=== PATIENT | male | born 1965 | race American Indian/Alaskan Native ===

== ENCOUNTER 2016-04-27 12:33 | Inpatient (IN) | payer OTHER ==
[2016-04-27 13:15] VITALS: BMI 26.6
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
[2016-04-27] MEDS ORDERED: METHADONE HCL 10 MG TABLET (FOR DETOX USE ONLY) PO ONE ×2 (16:07→23:00)
[2016-04-27] MEDS ORDERED: hydrOXYzine PAMOATE 25 MG CAPSULE (FP) PO PRN (16:07)
[2016-04-27] MEDS ORDERED: MENTHOL/PHENOL 1 EACH UD MM PRN (16:07)
[2016-04-27] MEDS ORDERED: guaiFENesin/D-METHORPHAN HB 10 ML UNIT-DOSE CUPS PO PRN (16:07)
[2016-04-27] MEDS ORDERED: MAGNESIUM CITRATE 300 ML BOTTLE PO PRN (16:07)
[2016-04-27] MEDS ORDERED: LOPERAMIDE HCL 2 MG CAPSULE PO PRN (16:07)
[2016-04-27] MEDS ORDERED: MAG HYDROX/AL HYDROX/SIMETH 30 ML UNIT-DOSE CUP PO PRN (16:07)
[2016-04-27] MEDS ORDERED: chlordiazePOXIDE HCL 25 MG CAPSULE PO ONE (16:07)
[2016-04-27] MEDS ORDERED: IBUPROFEN 400 MG TABLET (FP) PO PRN (16:07)
[2016-04-27] MEDS ORDERED: chlordiazePOXIDE HCL 25 MG CAPSULE PO PRN (16:07)
[2016-04-27] MEDS ORDERED: MAGNESIUM HYDROX 2400MG/30ML ORAL SUSPENSION 30 ML CUP PO PRN (16:07)
[2016-04-27] MEDS ORDERED: ACETAMINOPHEN 325 MG TABLET (FP) PO PRN (16:07)
[2016-04-27] MEDS ORDERED: diphenhydrAMINE HCL 50 MG CAPSULE PO PRN (16:07)
[2016-04-27] MEDS ORDERED: P-EPHED 60MG/TRIPROLIDI 2.5MG TABLET PO PRN (16:07)
[2016-04-27] MEDS: chlordiazePOXIDE HCL 25 MG CAPSULE PO SCH ×2 (16:59→22:22)
[2016-04-27] MEDS: RALTEGRAVIR POTASSIUM 400 MG TAB PO SCH (22:22)
[2016-04-27] MEDS: THIAMINE HCL 100 MG TABLET (FP) PO SCH (22:22)
[2016-04-28] MEDS: chlordiazePOXIDE HCL 25 MG CAPSULE PO SCH ×4 (05:36→22:27)
[2016-04-28] MEDS ORDERED: METHADONE HCL 10 MG TABLET (FOR DETOX USE ONLY) PO SCH (10:00)
[2016-04-28 10:08] LABS: MCH 27.9 pg (25.7-33.7); MCHC 32.1 g/dl (32.0-35.9); MEAN CELL VOLUME 86.7 fl (80-96); MEAN PLT VOLUME 7.1 fl (7.5-11.1); PLATELET COUNT 187 K/MM3 (134-434); RDW 13.9 % (11.9-15.9); WHITE BLOOD COUNT 7.9 K/mm3 (4.0-10.0)
[2016-04-28 10:12] LABS: ALBUMIN 3.4 g/dl (3.4-5.0); ANION GAP 7 (8-16); CALCIUM 9.1 mg/dL (8.5-10.1); CO2 28 mmol/L (21-32); GLUCOSE,RANDOM 97 mg/dL (74-106)
[2016-04-28 10:17] LABS: ALK PHOS 83 U/L (45-117); BILIRUBIN,TOTAL 0.5 mg/dL (0.2-1.0); CREATININE 1.1 mg/dL (0.7-1.3); SGOT/AST 46 U/L (15-37); SGPT/ALT 54 U/L (12-78); TOT PROT 6.8 g/dl (6.4-8.2)
[2016-04-28] MEDS: PRENATAL VITAMINS W/ FOLIC ACID TABLET (FP) PO SCH (10:21)
[2016-04-28] MEDS: RALTEGRAVIR POTASSIUM 400 MG TAB PO SCH ×2 (10:21→22:27)
[2016-04-28] MEDS: EMTRICITABINE 200MG/TENOFOVIR 300MG PO SCH (10:23)
--- NOTE | 2016-04-28 11:13 | CONSULT ---
[facility] Psychiatric Consult - Data Date of interview: 04/28/16 Admission source: [facility] Identifying data: Readmission to [facility] for this 50 y/o Aa male seeking detox treatment on for alcohol and cocaine (crack) dependence.Patient is ,a father of five,homeless,disabled and supported on [employer] funds. Substance Abuse History: - Smoking Cessation. Smoking history: Current every day smoker. Have you smoked in the past 12 months: Yes. Aproximately how many cigarettes per day: 10. Hx Chewing Tobacco Use: No. Initiated information on smoking cessation: Yes. 'Breaking Loose' booklet given: 10/08/15. - Substance & Tx. History. Hx Alcohol Use: No. Hx Substance Use: Yes. Substance Use Type : Cocaine, Heroin, Opiates. Hx Substance Use Treatment: Yes. - Substances Abused. Heroin. Route: Injection. Frequency: Daily. Amount used: 6 bags. Age of first use: 12. Date of Last Use: 10/07/15. Confirmed by patient. Medical History: Hepatitis C,HIV infection since 1996,heart murmur,right hip replacement and orthosurgery for fracture of right femur. Psychiatric History: Diagnosed with PTSD (1990).Patient admits to a history of one psychiatric hospitalization at [facility].Precipitant : of from AIDS (1994).Additional diagnosis : Bipolar Disorder.Patient is followed by Dr Scruggs at [facility].Medications : seroquel 200 mg/HS + zoloft 100 mg/day.No reported history of suicide attempts. Physical/Sexual Abuse/Trauma History: No history of sexual abuse. Mental Status Exam - Mental Status Exam Alert and Oriented to: Time, Place, Person Cognitive Function: Good Patient Appearance: Well Groomed Mood: Sad, Nervous, Anxious Affect: Mood Congruent Patient Behavior: Fatigued, Appropriate, Cooperative Speech Pattern: Clear, Appropriate Voice Loudness: Normal Thought Process: Goal Oriented Thought Disorder: Not Present Hallucinations: Denies Suicidal Ideation: Denies Homicidal Ideation: Denies Insight/Judgement: Fair Sleep: Poorly, Difficulty falling asleep Appetite: Fair Gait/Station: Other (walks with a cane) Psychiatric Findings - Problem List ([place] 1, 2,3) (1) Alcohol dependence with uncomplicated withdrawal Status: Acute (2) Nicotine dependence Status: Acute Qualifiers: Nicotine product type: cigarettes Substance use status: uncomplicated Qualified Code(s): F17.210 - Nicotine dependence, cigarettes, uncomplicated Comment: 10 cigarettes daily (3) Cocaine dependence Status: Acute (4) PTSD (post-traumatic stress disorder) Status: Chronic (5) Right femoral fracture Status: Chronic (6) Use of cane as ambulatory aid Status: Chronic (7) Acquired immune deficiency syndrome (AIDS) Status: Chronic Comment: 1990 (8) Hepatitis C Status: Chronic Qualifiers: Viral hepatitis chronicity: chronic Hepatic coma status: without hepatic coma Qualified Code(s): B18.2 - Chronic viral hepatitis C Comment: plan to be treated - Initial Treatment Plan Initial Treatment Plan: Psychoeducation.Detoxification.medications :seroquel 100 mg po hs + zoloft 100 mg po daily.Side effects/benefits discussed with the patient.He agrees with this plan.
[2016-04-28] MEDS: SERTRALINE HCL 50 MG TABLET (FP) PO SCH (13:05)
--- NOTE | 2016-04-28 13:43 | PN ---
S CIWA - CIWA Score Nausea/Vomitin Muscle Tremors: 3 Anxiety: 3 Agitation: 2 Paroxysmal Sweats: 3 Orientation: 0-Oriented Tacttile Disturbances: 1-Very Mild Itch/Numbness Auditory Disturbances: 2-Mild Harshness/Frighten Visual Disturbances: 0-None Headache: 0-None Present CIWA-Ar Total Score: 16 BHS COWS - Scale Resting Pulse: 1= [place] 81-100 Sweatin= Chills/Flushing Restless Observation: 1= Difficult to Sit Still Pupil Size: 0= Normal to Room Light Bone or Joint Aches: 2= Severe Diffuse Aches Runny Nose/ Eye Tearin= None GI Upset > 30mins: 2= Nausea/Diarrhea Tremor Observation of Outstretched Hands: 2= Slight Tremor Visible Yawning Observation: 0= None Anxiety or Irritability: 2=Irritable/Anxious Goose Flesh Skin: 3=Piloerection COWS Score: 14 BHS Progress Note (SOAP) Subjective: Sweating, Tremors, Diarrhea, Back Ache. Objective: PT. A & O X 3, OBSERVED AMBULATING ON UNIT. 04/28/16 13:42 Vital Signs Temperature 96.0 F L 04/28/16 13:21 Pulse Rate 83 04/28/16 13:21 Respiratory Rate 18 04/28/16 13:21 Blood Pressure 124/79 04/28/16 13:21 O2 Sat by Pulse Oximetry (%) Laboratory Last Values WBC 7.9 K/mm3 (4.0-10.0) D 04/28/16 07:00 RBC 4.99 M/mm3 (4.00-5.60) 04/28/16 07:00 Hgb 13.9 GM/dL (11.7-16.9) D 04/28/16 07:00 Hct 43.2 % (35.4-49) D 04/28/16 07:00 MCV 86.7 fl (80-96) 04/28/16 07:00 MCHC 32.1 g/dl (32.0-35.9) 04/28/16 07:00 RDW 13.9 % (11.9-15.9) 04/28/16 07:00 Plt Count 187 K/MM3 (134-434) D 04/28/16 07:00 MPV 7.1 fl (7.5-11.1) L 04/28/16 07:00 Sodium 140 mmol/L (136-145) 04/28/16 07:00 Potassium 4.1 mmol/L (3.5-5.1) 04/28/16 07:00 Chloride 105 mmol/L (98-107) 04/28/16 07:00 Carbon Dioxide 28 mmol/L (21-32) 04/28/16 07:00 Anion Gap 7 (8-16) L 04/28/16 07:00 BUN 15 mg/dL (7-18) 04/28/16 07:00 Creatinine 1.1 mg/dL (0.7-1.3) 04/28/16 07:00 Creat Clearance w eGFR > 60 (>60) 04/28/16 07:00 Random Glucose 97 mg/dL (74-106) 04/28/16 07:00 Calcium 9.1 mg/dL (8.5-10.1) 04/28/16 07:00 Total Bilirubin 0.5 mg/dL (0.2-1.0) 04/28/16 07:00 AST 46 U/L (15-37) H D 04/28/16 07:00 ALT 54 U/L (12-78) D 04/28/16 07:00 Alkaline Phosphatase 83 U/L (45-117) 04/28/16 07:00 Total Protein 6.8 g/dl (6.4-8.2) 04/28/16 07:00 Albumin 3.4 g/dl (3.4-5.0) 04/28/16 07:00 RPR Titer Nonreactive (NONREACTIVE) 04/28/16 07:00 LABS NOTED. Assessment: 04/28/16 13:43 WITHDRAWAL SYMPTOMS. Plan: CONTINUE DETOX.
--- NOTE | 2016-04-28 13:58 | EKG ---
Test Reason : Blood Pressure : / mmHG Vent. Rate : 083 BPM Atrial Rate : 083 BPM P-R Int : 170 ms QRS Dur : 082 ms QT Int : 382 ms P-R-T Axes : 067 046 043 degrees QTc Int : 448 ms NORMAL SINUS RHYTHM NORMAL ECG NO PREVIOUS ECGS AVAILABLE Confirmed by ELADIA UGALDE MD ([id number]) on 04/28/2016 1:58:27 PM Referred By: Confirmed By:ELADIA UGALDE MD
[2016-04-28 17:15] LABS: URINE APPEARANCE CLEAR; URINE BILIRUBIN NEGATIVE (NEGATIVE); URINE COLOR LTYELLOW; URINE GLUCOSE (UA) NEGATIVE (NEGATIVE); URINE KETONE NEGATIVE (NEGATIVE); URINE LEUK ESTERASE NEGATIVE (NEGATIVE); URINE NITRITE NEGATIVE (NEGATIVE); URINE PROTEIN NEGATIVE (NEGATIVE); URINE UROBILINOGEN NEGATIVE E.U./dl (0.2-1.0)
[2016-04-28 17:21] LABS: URINE BLOOD 1+ (NEGATIVE)
[2016-04-28 17:57] LABS: URINE MUCUS RARE; URINE RBC <1 /hpf (0-3); URINE WBC <1 /hpf (3-5)
[2016-04-28] MEDS: QUEtiapine FUMARATE 100 MG TABLET (FP) PO SCH (22:27)
[2016-04-28] MEDS: THIAMINE HCL 100 MG TABLET (FP) PO SCH (22:27)
[2016-04-29] MEDS: chlordiazePOXIDE HCL 25 MG CAPSULE PO SCH ×2 (06:08→10:21)
[2016-04-29] MEDS: RALTEGRAVIR POTASSIUM 400 MG TAB PO SCH ×2 (10:21→22:22)
[2016-04-29] MEDS: PRENATAL VITAMINS W/ FOLIC ACID TABLET (FP) PO SCH (10:21)
[2016-04-29] MEDS: EMTRICITABINE 200MG/TENOFOVIR 300MG PO SCH (10:21)
[2016-04-29] MEDS: SERTRALINE HCL 50 MG TABLET (FP) PO SCH (10:21)
[2016-04-29] MEDS: METHADONE HCL 5 MG TABLET (FOR DETOX USE ONLY) PO SCH (10:22)
--- NOTE | 2016-04-29 11:27 | PN ---
[facility] CIWA - CIWA Score Nausea/Vomitin-No Nausea/No Vomiting Muscle Tremors: 3 Anxiety: 4-Mod. Anxious/Guarded Agitation: 3 Paroxysmal Sweats: 3 Orientation: 0-Oriented Tacttile Disturbances: 0-None Auditory Disturbances: 0-None Visual Disturbances: 0-None Headache: 0-None Present CIWA-Ar Total Score: 13 BHS COWS - Scale Resting Pulse: 1= [place] 81-100 Sweatin=Flushed/Facial Moisture Restless Observation: 1= Difficult to Sit Still Pupil Size: 0= Normal to Room Light Bone or Joint Aches: 2= Severe Diffuse Aches Runny Nose/ Eye Tearin= Runny Nose/Eyes GI Upset > 30mins: 2= Nausea/Diarrhea Tremor Observation of Outstretched Hands: 2= Slight Tremor Visible Yawning Observation: 1= 1-2x During Session Anxiety or Irritability: 2=Irritable/Anxious Goose Flesh Skin: 0=Smooth Skin COWS Score: 15 BHS Progress Note (SOAP) Subjective: ANXIETY,TREMORS,SWEATING,INTERRUPTED SLEEP,RESTLESS,MUSCLE ACHES/SPASM Objective: 04/29/16 11:26 Last Vital Signs Temp Pulse Resp BP Pulse Ox 96.3 F L 86 18 109/78 04/29/16 06:37 04/29/16 09:51 04/29/16 09:51 04/29/16 09:51 Assessment: 04/29/16 11:26 WITHDRAWAL SX. Plan: CONTINUE DETOX
[2016-04-29] MEDS: chlordiazePOXIDE 5 MG CAPSULE PO SCH ×2 (17:12→22:22)
[2016-04-29] MEDS: THIAMINE HCL 100 MG TABLET (FP) PO SCH (22:22)
[2016-04-29] MEDS: QUEtiapine FUMARATE 100 MG TABLET (FP) PO SCH (22:22)
[2016-04-30] MEDS: chlordiazePOXIDE 5 MG CAPSULE PO SCH ×2 (05:58→10:25)
[2016-04-30] MEDS: PRENATAL VITAMINS W/ FOLIC ACID TABLET (FP) PO SCH (10:24)
[2016-04-30] MEDS: RALTEGRAVIR POTASSIUM 400 MG TAB PO SCH ×2 (10:24→22:18)
[2016-04-30] MEDS: METHADONE HCL 5 MG TABLET (FOR DETOX USE ONLY) PO SCH (10:25)
[2016-04-30] MEDS: EMTRICITABINE 200MG/TENOFOVIR 300MG PO SCH (10:25)
[2016-04-30] MEDS: SERTRALINE HCL 50 MG TABLET (FP) PO SCH (10:26)
[2016-04-30] MEDS: chlordiazePOXIDE HCL 10 MG CAPSULE PO SCH ×2 (17:45→22:18)
--- NOTE | 2016-04-30 17:51 | PN ---
BHS Progress Note (SOAP) Subjective: SWEATING,INTERRUPTED SLEEP,RESTLESS. Objective: 04/30/16 17:50 Vital Signs - 8 hr 04/30/16 04/30/16 13:20 17:30 Temperature 95.6 F L 97.1 F L Pulse Rate 79 70 Respiratory 18 19 Rate Blood Pressure 115/76 109/62 Laboratory Last Values WBC 7.9 K/mm3 (4.0-10.0) D 04/28/16 07:00 RBC 4.99 M/mm3 (4.00-5.60) 04/28/16 07:00 Hgb 13.9 GM/dL (11.7-16.9) D 04/28/16 07:00 Hct 43.2 % (35.4-49) D 04/28/16 07:00 MCV 86.7 fl (80-96) 04/28/16 07:00 MCHC 32.1 g/dl (32.0-35.9) 04/28/16 07:00 RDW 13.9 % (11.9-15.9) 04/28/16 07:00 Plt Count 187 K/MM3 (134-434) D 04/28/16 07:00 MPV 7.1 fl (7.5-11.1) L 04/28/16 07:00 Sodium 140 mmol/L (136-145) 04/28/16 07:00 Potassium 4.1 mmol/L (3.5-5.1) 04/28/16 07:00 Chloride 105 mmol/L (98-107) 04/28/16 07:00 Carbon Dioxide 28 mmol/L (21-32) 04/28/16 07:00 Anion Gap 7 (8-16) L 04/28/16 07:00 BUN 15 mg/dL (7-18) 04/28/16 07:00 Creatinine 1.1 mg/dL (0.7-1.3) 04/28/16 07:00 Creat Clearance w eGFR > 60 (>60) 04/28/16 07:00 Random Glucose 97 mg/dL (74-106) 04/28/16 07:00 Calcium 9.1 mg/dL (8.5-10.1) 04/28/16 07:00 Total Bilirubin 0.5 mg/dL (0.2-1.0) 04/28/16 07:00 AST 46 U/L (15-37) H D 04/28/16 07:00 ALT 54 U/L (12-78) D 04/28/16 07:00 Alkaline Phosphatase 83 U/L (45-117) 04/28/16 07:00 Total Protein 6.8 g/dl (6.4-8.2) 04/28/16 07:00 Albumin 3.4 g/dl (3.4-5.0) 04/28/16 07:00 Urine Color Ltyellow 04/28/16 13:30 Urine Appearance Clear 04/28/16 13:30 Urine pH 7.0 (5.0-8.0) D 04/28/16 13:30 Ur Specific [place] 1.013 (1.001-1.035) 04/28/16 13:30 Urine Protein Negative (NEGATIVE) 04/28/16 13:30 Urine Glucose (UA) Negative (NEGATIVE) 04/28/16 13:30 Urine Ketones Negative (NEGATIVE) 04/28/16 13:30 Urine Blood 1+ (NEGATIVE) H 04/28/16 13:30 Urine Nitrite Negative (NEGATIVE) 04/28/16 13:30 Urine Bilirubin Negative (NEGATIVE) 04/28/16 13:30 Urine Urobilinogen Negative E.U./dl (0.2-1.0) 04/28/16 13:30 Ur Leukocyte Esterase Negative (NEGATIVE) 04/28/16 13:30 Urine RBC <1 /hpf (0-3) 04/28/16 13:30 Urine WBC <1 /hpf (3-5) 04/28/16 13:30 Urine Mucus Rare 04/28/16 13:30 RPR Titer Nonreactive (NONREACTIVE) 04/28/16 07:00 LABS NOTED Assessment: 04/30/16 17:50 WITHDRAWAL SX. Plan: CONTINUE DETOX
[2016-04-30] MEDS: QUEtiapine FUMARATE 100 MG TABLET (FP) PO SCH (22:18)
[2016-04-30] MEDS: THIAMINE HCL 100 MG TABLET (FP) PO SCH (22:18)
[2016-05-01] MEDS: chlordiazePOXIDE HCL 10 MG CAPSULE PO SCH ×2 (05:39→10:23)
[2016-05-01] MEDS ORDERED: METHADONE HCL 10 MG TABLET (FOR DETOX USE ONLY) PO SCH (10:00)
[2016-05-01] MEDS: SERTRALINE HCL 50 MG TABLET (FP) PO SCH (10:23)
[2016-05-01] MEDS: RALTEGRAVIR POTASSIUM 400 MG TAB PO SCH ×2 (10:23→22:15)
[2016-05-01] MEDS: PRENATAL VITAMINS W/ FOLIC ACID TABLET (FP) PO SCH (10:23)
[2016-05-01] MEDS: EMTRICITABINE 200MG/TENOFOVIR 300MG PO SCH (10:24)
--- NOTE | 2016-05-01 11:19 | PN ---
BHS Progress Note (SOAP) Subjective: SWEATING,INTERRUPTED SLEEP,SWEATING Objective: 05/01/16 11:18 Vital Signs - 8 hr 05/01/16 05/01/16 05/01/16 03:30 07:00 10:09 Temperature 95.9 F L 96.8 F L Pulse Rate 96 H 97 H Respiratory 18 16 16 Rate Blood Pressure 97/62 107/71 Laboratory Last Values WBC 7.9 K/mm3 (4.0-10.0) D 04/28/16 07:00 RBC 4.99 M/mm3 (4.00-5.60) 04/28/16 07:00 Hgb 13.9 GM/dL (11.7-16.9) D 04/28/16 07:00 Hct 43.2 % (35.4-49) D 04/28/16 07:00 MCV 86.7 fl (80-96) 04/28/16 07:00 MCHC 32.1 g/dl (32.0-35.9) 04/28/16 07:00 RDW 13.9 % (11.9-15.9) 04/28/16 07:00 Plt Count 187 K/MM3 (134-434) D 04/28/16 07:00 MPV 7.1 fl (7.5-11.1) L 04/28/16 07:00 Sodium 140 mmol/L (136-145) 04/28/16 07:00 Potassium 4.1 mmol/L (3.5-5.1) 04/28/16 07:00 Chloride 105 mmol/L (98-107) 04/28/16 07:00 Carbon Dioxide 28 mmol/L (21-32) 04/28/16 07:00 Anion Gap 7 (8-16) L 04/28/16 07:00 BUN 15 mg/dL (7-18) 04/28/16 07:00 Creatinine 1.1 mg/dL (0.7-1.3) 04/28/16 07:00 Creat Clearance w eGFR > 60 (>60) 04/28/16 07:00 Random Glucose 97 mg/dL (74-106) 04/28/16 07:00 Calcium 9.1 mg/dL (8.5-10.1) 04/28/16 07:00 Total Bilirubin 0.5 mg/dL (0.2-1.0) 04/28/16 07:00 AST 46 U/L (15-37) H D 04/28/16 07:00 ALT 54 U/L (12-78) D 04/28/16 07:00 Alkaline Phosphatase 83 U/L (45-117) 04/28/16 07:00 Total Protein 6.8 g/dl (6.4-8.2) 04/28/16 07:00 Albumin 3.4 g/dl (3.4-5.0) 04/28/16 07:00 Urine Color Ltyellow 04/28/16 13:30 Urine Appearance Clear 04/28/16 13:30 Urine pH 7.0 (5.0-8.0) D 04/28/16 13:30 Ur Specific [place] 1.013 (1.001-1.035) 04/28/16 13:30 Urine Protein Negative (NEGATIVE) 04/28/16 13:30 Urine Glucose (UA) Negative (NEGATIVE) 04/28/16 13:30 Urine Ketones Negative (NEGATIVE) 04/28/16 13:30 Urine Blood 1+ (NEGATIVE) H 04/28/16 13:30 Urine Nitrite Negative (NEGATIVE) 04/28/16 13:30 Urine Bilirubin Negative (NEGATIVE) 04/28/16 13:30 Urine Urobilinogen Negative E.U./dl (0.2-1.0) 04/28/16 13:30 Ur Leukocyte Esterase Negative (NEGATIVE) 04/28/16 13:30 Urine RBC <1 /hpf (0-3) 04/28/16 13:30 Urine WBC <1 /hpf (3-5) 04/28/16 13:30 Urine Mucus Rare 04/28/16 13:30 RPR Titer Nonreactive (NONREACTIVE) 04/28/16 07:00 LABS NOTED Assessment: 05/01/16 11:18 WITHDRAWAL SX. Plan: CONTINUE DETOX
[2016-05-01] MEDS: THIAMINE HCL 100 MG TABLET (FP) PO SCH (22:15)
[2016-05-01] MEDS: QUEtiapine FUMARATE 100 MG TABLET (FP) PO SCH (22:15)
[2016-05-02] MEDS ORDERED: METHADONE HCL 5 MG TABLET (FOR DETOX USE ONLY) PO SCH (06:00)
[2016-05-02 06:24] VITALS: BP 105/72; PULSE 80; TEMP 96.5
--- NOTE | 2016-05-02 11:35 | DS ---
[facility] Detox Discharge Summary Admission Date: 04/27/16 Discharge Date: 05/02/16 - History Present History: Alcohol Dependence, Cocaine Dependence, Opioid Dependence Pertinent Past History: AIDS PTSD HEP C - Physical Exam Results Vital Signs: Vital Signs Temperature 96.5 F L 05/02/16 06:24 Pulse Rate 80 05/02/16 06:24 Respiratory Rate 16 05/02/16 06:24 Blood Pressure 105/72 05/02/16 06:24 O2 Sat by Pulse Oximetry (%) Pertinent Admission Physical Exam Findings: Withdrawal sx. Laboratory Tests 04/28/16 04/28/16 04/28/16 07:00 07:00 07:00 WBC 7.9 D RBC 4.99 Hgb 13.9 D Hct 43.2 D MCV 86.7 MCHC 32.1 RDW 13.9 Plt Count 187 D MPV 7.1 L Sodium 140 Potassium 4.1 Chloride 105 Carbon Dioxide 28 Anion Gap 7 L BUN 15 Creatinine 1.1 Creat Clearance w eGFR > 60 Random Glucose 97 Calcium 9.1 Total Bilirubin 0.5 AST 46 H D ALT 54 D Alkaline Phosphatase 83 Total Protein 6.8 Albumin 3.4 Urine Color Urine Appearance Urine pH Ur Specific [place] Urine Protein Urine Glucose (UA) Urine Ketones Urine Blood Urine Nitrite Urine Bilirubin Urine Urobilinogen Ur Leukocyte Esterase Urine RBC Urine WBC Urine Mucus RPR Titer Nonreactive 04/28/16 13:30 WBC RBC Hgb Hct MCV MCHC RDW Plt Count MPV Sodium Potassium Chloride Carbon Dioxide Anion Gap BUN Creatinine Creat Clearance w eGFR Random Glucose Calcium Total Bilirubin AST ALT Alkaline Phosphatase Total Protein Albumin Urine Color Ltyellow Urine Appearance Clear Urine pH 7.0 D Ur Specific [place] 1.013 Urine Protein Negative Urine Glucose (UA) Negative Urine Ketones Negative Urine Blood 1+ H Urine Nitrite Negative Urine Bilirubin Negative Urine Urobilinogen Negative Ur Leukocyte Esterase Negative Urine RBC <1 Urine WBC <1 Urine Mucus Rare RPR Titer labs noted - Treatment Hospital Course: Detox Protocol Followed, Detoxed Safely, Responded well, Discharged Condition Good, Rehab Referral Accepted - Medication Discharge Medications: Ambulatory Orders Quetiapine Fumarate [Seroquel -] 200 mg PO HS 04/05/13 Emtricitabine/Tenofovir [Truvada -] 1 tab PO DAILY #0 tablet 06/08/13 Raltegravir [Isentress -] 400 mg PO BID 04/27/16 Sertraline HCl [Zoloft] 100 mg PO DAILY 04/27/16 Quetiapine Fumarate [Seroquel] 100 mg PO HS #30 tablet 04/28/16 Sertraline HCl [Zoloft -] 100 mg PO DAILY #30 tablet 04/28/16 - Diagnosis (1) Alcohol dependence with uncomplicated withdrawal Status: Acute (2) Cocaine dependence Status: Acute Qualifiers: Substance use status: uncomplicated Qualified Code(s): F14.20 - Cocaine dependence, uncomplicated (3) Nicotine dependence Status: Acute Qualifiers: Nicotine product type: cigarettes Substance use status: uncomplicated Qualified Code(s): F17.210 - Nicotine dependence, cigarettes, uncomplicated (4) Opioid dependence with withdrawal Status: Acute (5) Acquired immune deficiency syndrome (AIDS) Status: Chronic (6) Hepatitis C Status: Chronic Qualifiers: Viral hepatitis chronicity: chronic Hepatic coma status: without hepatic coma Qualified Code(s): B18.2 - Chronic viral hepatitis C (7) PTSD (post-traumatic stress disorder) Status: Chronic - AMA Did Patient Leave Against Medical Advice: No
== END 2016-05-02 09:13 | disposition home or self-care (01) | DRG 774 ==
LOC: YASAS 12:33 → Y3N 15:20
PROVIDERS: ADMIT Internal Medicine; ATTEND Internal Medicine
PROC: HZ2ZZZZ Detoxification Services for Substance Abuse Treatment (ICD-10-PCS; principal; 2016-05-02)
DX: F10.230 Alcohol dependence with withdrawal, uncomplicated (principal); F14.20 Cocaine dependence, uncomplicated; F17.210 Nicotine dependence, cigarettes, uncomplicated; F31.81 Bipolar II disorder; F43.10 Post-traumatic stress disorder, unspecified; Z21 Asymptomatic human immunodeficiency virus [HIV] infection status; R63.4 Abnormal weight loss; Z68.26 Body mass index [BMI] 26.0-26.9, adult; Z87.81 Personal history of (healed) traumatic fracture
CPT/HCPCS: 36415; 80053; 81003; 81015; 85027; 86593; 93005; 93010

== ENCOUNTER 2016-07-07 10:29 | Inpatient (IN) | payer OTHER ==
[2016-07-07 14:08] VITALS: BMI 25.9
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
[2016-07-07] MEDS ORDERED: diphenhydrAMINE HCL 50 MG CAPSULE PO PRN (15:43)
[2016-07-07] MEDS ORDERED: MENTHOL/PHENOL 1 EACH UD MM PRN (15:43)
[2016-07-07] MEDS ORDERED: chlordiazePOXIDE HCL 25 MG CAPSULE PO PRN (15:43)
[2016-07-07] MEDS ORDERED: LOPERAMIDE HCL 2 MG CAPSULE PO PRN (15:43)
[2016-07-07] MEDS ORDERED: NICOTINE POLACRILEX 2 MG GUM BC PRN (15:43)
[2016-07-07] MEDS ORDERED: MAG HYDROX/AL HYDROX/SIMETH 30 ML UNIT-DOSE CUP PO PRN (15:43)
[2016-07-07] MEDS ORDERED: IBUPROFEN 400 MG TABLET (FP) PO PRN (15:43)
[2016-07-07] MEDS ORDERED: hydrOXYzine PAMOATE 25 MG CAPSULE (FP) PO PRN (15:43)
[2016-07-07] MEDS ORDERED: MAGNESIUM HYDROX 2400MG/30ML ORAL SUSPENSION 30 ML CUP PO PRN (15:43)
[2016-07-07] MEDS ORDERED: guaiFENesin/D-METHORPHAN HB 10 ML UNIT-DOSE CUPS PO PRN (15:43)
[2016-07-07] MEDS ORDERED: ACETAMINOPHEN 325 MG TABLET (FP) PO PRN (15:43)
[2016-07-07] MEDS ORDERED: P-EPHED 60MG/TRIPROLIDI 2.5MG TABLET PO PRN (15:43)
[2016-07-07] MEDS ORDERED: MAGNESIUM CITRATE 300 ML BOTTLE PO PRN (15:43)
[2016-07-07] MEDS ORDERED: chlordiazePOXIDE HCL 25 MG CAPSULE PO ONE (16:45)
[2016-07-07] MEDS ORDERED: METHADONE HCL 10 MG TABLET (FOR DETOX USE ONLY) PO ONE ×2 (16:45→23:00)
[2016-07-07 18:15] VITALS: BP 115/72; PULSE 88; TEMP 97.9
--- NOTE | 2016-07-07 20:15 | PN ---
[facility] Progress Note Note: patient did not want to complete treatment,reason personal emergency,signed release ama,did not want to wait
--- NOTE | 2016-07-07 20:16 | DS ---
[facility] Detox Discharge Summary Admission Date: 07/07/16 Discharge Date: 07/08/16 - History Present History: Alcohol Dependence, Opioid Dependence Additional Comments: patient did not want to complete treatment,reason family emergency,did not want to wait,signed release ama,did not wnat to wait Pertinent Past History: aids hepatitis c neuropathy ptsd bipolar disorder - Physical Exam Results Vital Signs: Vital Signs Temperature 97.9 F 07/07/16 18:14 Pulse Rate 88 07/07/16 18:14 Respiratory Rate 20 07/07/16 18:14 Blood Pressure 115/72 07/07/16 18:14 O2 Sat by Pulse Oximetry (%) Pertinent Admission Physical Exam Findings: withdrawal symptom - Medication Discharge Medications: Ambulatory Orders Emtricitabine/Tenofovir [Truvada -] 1 tab PO DAILY #0 tablet 06/08/13 Raltegravir [Isentress -] 400 mg PO BID 04/27/16 Quetiapine Fumarate [Seroquel] 100 mg PO HS #30 tablet 04/28/16 Sertraline HCl [Zoloft -] 100 mg PO DAILY #30 tablet 04/28/16 - Diagnosis (1) Opioid dependence with withdrawal Current Visit: No Status: Acute (2) Weight loss Current Visit: No Status: Acute (3) Acquired immune deficiency syndrome (AIDS) Current Visit: No Status: Chronic (4) Bipolar I disorder Current Visit: No Status: Chronic (5) Hepatitis C Current Visit: No Status: Chronic Qualifiers: Viral hepatitis chronicity: chronic Hepatic coma status: without hepatic coma Qualified Code(s): B18.2 - Chronic viral hepatitis C (6) PTSD (post-traumatic stress disorder) Current Visit: No Status: Chronic (7) Right femoral fracture Current Visit: No Status: Chronic (8) Neuropathy Current Visit: Yes Status: Acute (9) Nicotine dependence Current Visit: No Status: Acute Qualifiers: Nicotine product type: cigarettes Substance use status: uncomplicated Qualified Code(s): F17.210 - Nicotine dependence, cigarettes, uncomplicated - AMA Did Patient Leave Against Medical Advice: Yes
[2016-07-07] MEDS ORDERED: RALTEGRAVIR POTASSIUM 400 MG TAB PO SCH (22:00)
[2016-07-07] MEDS ORDERED: THIAMINE HCL 100 MG TABLET (FP) PO SCH (22:00)
[2016-07-07] MEDS ORDERED: chlordiazePOXIDE HCL 25 MG CAPSULE PO SCH (23:00)
[2016-07-08] MEDS ORDERED: METHADONE HCL 10 MG TABLET (FOR DETOX USE ONLY) PO SCH (10:00)
[2016-07-08] MEDS ORDERED: PRENATAL VITAMINS W/ FOLIC ACID TABLET (FP) PO SCH (10:00)
[2016-07-08] MEDS ORDERED: EMTRICITABINE 200MG/TENOFOVIR 300MG PO SCH (10:00)
--- NOTE | 2016-07-08 13:14 | EKG ---
Test Reason : Blood Pressure : / mmHG Vent. Rate : 075 BPM Atrial Rate : 075 BPM P-R Int : 176 ms QRS Dur : 096 ms QT Int : 388 ms P-R-T Axes : 072 048 049 degrees QTc Int : 433 ms NORMAL SINUS RHYTHM POOR R WAVE PROGRESSION ABNORMAL ECG WHEN COMPARED WITH ECG OF 27-APR-2016 17:05, NO SIGNIFICANT CHANGE WAS FOUND Confirmed by TAMARA JORDAN MD ([id number]) on 07/08/2016 1:14:12 PM Referred By: Confirmed By:TAMARA JORDAN MD
[2016-07-08] MEDS ORDERED: chlordiazePOXIDE HCL 25 MG CAPSULE PO SCH (23:00)
[2016-07-09] MEDS ORDERED: METHADONE HCL 5 MG TABLET (FOR DETOX USE ONLY) PO SCH (10:00)
[2016-07-09] MEDS ORDERED: chlordiazePOXIDE 5 MG CAPSULE PO SCH (23:00)
[2016-07-10] MEDS ORDERED: chlordiazePOXIDE HCL 10 MG CAPSULE PO SCH (23:00)
[2016-07-11] MEDS ORDERED: METHADONE HCL 10 MG TABLET (FOR DETOX USE ONLY) PO SCH (10:00)
[2016-07-12] MEDS ORDERED: METHADONE HCL 5 MG TABLET (FOR DETOX USE ONLY) PO SCH (06:00)
== END 2016-07-07 20:45 | disposition left against medical advice (07) | DRG 770 ==
LOC: YASAS 10:29 → Y6N 16:11
PROVIDERS: ADMIT Internal Medicine Addiction Medicine; ATTEND Internal Medicine Addiction Medicine
PROC: HZ2ZZZZ Detoxification Services for Substance Abuse Treatment (ICD-10-PCS; principal; 2016-07-07)
DX: F11.23 Opioid dependence with withdrawal (principal); F17.210 Nicotine dependence, cigarettes, uncomplicated; F31.89 Other bipolar disorder; F43.10 Post-traumatic stress disorder, unspecified; N18.2 Chronic kidney disease, stage 2 (mild); G62.9 Polyneuropathy, unspecified; Z86.79 Personal history of other diseases of the circulatory system; Z87.898 Personal history of other specified conditions; Z87.81 Personal history of (healed) traumatic fracture
CPT/HCPCS: 93005; 93010

== ENCOUNTER 2016-12-24 14:44 | Inpatient (IN) | payer OTHER ==
[2016-12-24 17:40] VITALS: BMI 25.7
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
[2016-12-24] MEDS ORDERED: chlordiazePOXIDE HCL 25 MG CAPSULE PO ONE (20:50)
[2016-12-24] MEDS ORDERED: LOPERAMIDE HCL 2 MG CAPSULE PO PRN (20:50)
[2016-12-24] MEDS ORDERED: P-EPHED 60MG/TRIPROLIDI 2.5MG TABLET PO PRN (20:50)
[2016-12-24] MEDS ORDERED: MAG HYDROX/AL HYDROX/SIMETH 30 ML UNIT-DOSE CUP PO PRN (20:50)
[2016-12-24] MEDS ORDERED: METHADONE HCL 10 MG TABLET (FOR DETOX USE ONLY) PO ONE ×2 (20:50→23:00)
[2016-12-24] MEDS ORDERED: MAGNESIUM CITRATE 300 ML BOTTLE PO PRN (20:50)
[2016-12-24] MEDS ORDERED: MENTHOL/PHENOL 1 EACH UD MM PRN (20:50)
[2016-12-24] MEDS ORDERED: IBUPROFEN 400 MG TABLET (FP) PO PRN (20:50)
[2016-12-24] MEDS ORDERED: hydrOXYzine PAMOATE 25 MG CAPSULE (FP) PO PRN (20:50)
[2016-12-24] MEDS ORDERED: guaiFENesin/D-METHORPHAN HB 10 ML UNIT-DOSE CUPS PO PRN (20:50)
[2016-12-24] MEDS ORDERED: MAGNESIUM HYDROX 2400MG/30ML ORAL SUSPENSION 30 ML CUP PO PRN (20:50)
[2016-12-24] MEDS ORDERED: chlordiazePOXIDE HCL 25 MG CAPSULE PO PRN (20:50)
[2016-12-24] MEDS ORDERED: ACETAMINOPHEN 325 MG TABLET (FP) PO PRN (20:50)
[2016-12-24] MEDS ORDERED: RALTEGRAVIR POTASSIUM 400 MG TAB PO SCH (22:00)
[2016-12-24] MEDS: THIAMINE HCL 100 MG TABLET (FP) PO SCH (22:27)
[2016-12-24] MEDS: chlordiazePOXIDE HCL 25 MG CAPSULE PO SCH (22:27)
[2016-12-24 23:57] LABS: URINE APPEARANCE SLCLOUDY; URINE BILIRUBIN NEGATIVE (NEGATIVE); URINE BLOOD NEGATIVE (NEGATIVE); URINE COLOR AMBER; URINE GLUCOSE (UA) NEGATIVE (NEGATIVE); URINE KETONE NEGATIVE (NEGATIVE); URINE LEUK ESTERASE NEGATIVE (NEGATIVE); URINE NITRITE NEGATIVE (NEGATIVE); URINE PROTEIN NEGATIVE (NEGATIVE)
[2016-12-25] MEDS: chlordiazePOXIDE HCL 25 MG CAPSULE PO SCH ×4 (05:14→22:30)
[2016-12-25] MEDS ORDERED: METHADONE HCL 10 MG TABLET (FOR DETOX USE ONLY) PO SCH (10:00)
[2016-12-25 10:13] LABS: MCH 26.2 pg (25.7-33.7); MCHC 31.8 g/dl (32.0-35.9); MEAN CELL VOLUME 82.4 fl (80-96); MEAN PLT VOLUME 7.5 fl (7.5-11.1); PLATELET COUNT 186 K/MM3 (134-434); RDW 15.4 % (11.9-15.9); WHITE BLOOD COUNT 5.8 K/mm3 (4.0-10.0)
[2016-12-25] MEDS: RALTEGRAVIR POTASSIUM 400 MG TAB PO SCH ×2 (10:31→22:31)
[2016-12-25] MEDS: PRENATAL VITAMINS W/ FOLIC ACID TABLET (FP) PO SCH (10:31)
[2016-12-25] MEDS: EMTRICITABINE 200MG/TENOFOVIR 300MG PO SCH (10:32)
[2016-12-25] MEDS: NICOTINE POLACRILEX 2 MG GUM BC PRN (10:33)
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
[2016-12-25 10:38] LABS: ALBUMIN 3.2 g/dl (3.4-5.0); ANION GAP 5 (8-16); CALCIUM 8.6 mg/dL (8.5-10.1); CO2 30 mmol/L (21-32); CREATININE 1.1 mg/dL (0.7-1.3); GLUCOSE,RANDOM 86 mg/dL (74-106); SGOT/AST 55 U/L (15-37); SGPT/ALT 49 U/L (12-78)
[2016-12-25 10:40] LABS: ALK PHOS 77 U/L (45-117); BILIRUBIN,TOTAL 0.7 mg/dL (0.2-1.0); TOT PROT 6.7 g/dl (6.4-8.2)
[2016-12-25] MEDS: SERTRALINE HCL 50 MG TABLET (FP) PO SCH (11:18)
--- NOTE | 2016-12-25 12:05 | PN ---
[facility] CIWA - CIWA Score Nausea/Vomitin-No Nausea/No Vomiting Muscle Tremors: 4-Moderate,w/Arms Extend Anxiety: 4-Mod. Anxious/Guarded Agitation: 4-Moderately Restless Paroxysmal Sweats: 1-Minimal Palms Moist Orientation: 0-Oriented Tacttile Disturbances: 3-Moderate Itch/Numb/Burn Auditory Disturbances: 0-None Visual Disturbances: 0-None Headache: 0-None Present CIWA-Ar Total Score: 16 S COWS - Scale Resting Pulse: 1= [place] 81-100 Sweatin= Chills/Flushing Restless Observation: 3= Extraneous Movement Pupil Size: 1= Pupils >than Normal Bone or Joint Aches: 4=Acute Joint/Muscle Pain Runny Nose/ Eye Tearin= Nasal Congestion GI Upset > 30mins: 1= Stomach Cramp Tremor Observation of Outstretched Hands: 1= Tremor [place], Not Seen Yawning Observation: 2= >3x During Session Anxiety or Irritability: 2=Irritable/Anxious Goose Flesh Skin: 0=Smooth Skin COWS Score: 17 [facility] Progress Note (SOAP) Subjective: ANXIETY,TREMORS,SWEATS,FATIGUES. Objective: 12/25/16 12:03 Vital Signs Temperature 98.0 F 12/25/16 09:09 Pulse Rate 79 12/25/16 09:09 Respiratory Rate 18 12/25/16 09:09 Blood Pressure 108/73 12/25/16 09:09 O2 Sat by Pulse Oximetry (%) Laboratory Last Values WBC 5.8 K/mm3 (4.0-10.0) 12/25/16 07:15 RBC 5.08 M/mm3 (4.00-5.60) 12/25/16 07:15 Hgb 13.3 GM/dL (11.7-16.9) 12/25/16 07:15 Hct 41.9 % (35.4-49) 12/25/16 07:15 MCV 82.4 fl (80-96) 12/25/16 07:15 MCH 26.2 pg (25.7-33.7) 12/25/16 07:15 MCHC 31.8 g/dl (32.0-35.9) L 12/25/16 07:15 RDW 15.4 % (11.9-15.9) D 12/25/16 07:15 Plt Count 186 K/MM3 (134-434) 12/25/16 07:15 MPV 7.5 fl (7.5-11.1) 12/25/16 07:15 Sodium 140 mmol/L (136-145) 12/25/16 07:15 Potassium 4.2 mmol/L (3.5-5.1) 12/25/16 07:15 Chloride 105 mmol/L (98-107) 12/25/16 07:15 Carbon Dioxide 30 mmol/L (21-32) 12/25/16 07:15 Anion Gap 5 (8-16) L 12/25/16 07:15 BUN 12 mg/dL (7-18) 12/25/16 07:15 Creatinine 1.1 mg/dL (0.7-1.3) 12/25/16 07:15 Creat Clearance w eGFR > 60 (>60) 12/25/16 07:15 Random Glucose 86 mg/dL (74-106) 12/25/16 07:15 Calcium 8.6 mg/dL (8.5-10.1) 12/25/16 07:15 Total Bilirubin 0.7 mg/dL (0.2-1.0) D 12/25/16 07:15 AST 55 U/L (15-37) H 12/25/16 07:15 ALT 49 U/L (12-78) 12/25/16 07:15 Alkaline Phosphatase 77 U/L (45-117) 12/25/16 07:15 Total Protein 6.7 g/dl (6.4-8.2) 12/25/16 07:15 Albumin 3.2 g/dl (3.4-5.0) L 12/25/16 07:15 Urine Color Maryse 12/24/16 23:45 Urine Appearance Slcloudy 12/24/16 23:45 Urine pH 6.0 (5.0-8.0) 12/24/16 23:45 Ur Specific [place] 1.025 (1.005-1.025) 12/24/16 23:45 Urine Protein Negative (NEGATIVE) 12/24/16 23:45 Urine Glucose (UA) Negative (NEGATIVE) 12/24/16 23:45 Urine Ketones Negative (NEGATIVE) 12/24/16 23:45 Urine Blood Negative (NEGATIVE) 12/24/16 23:45 Urine Nitrite Negative (NEGATIVE) 12/24/16 23:45 Urine Bilirubin Negative (NEGATIVE) 12/24/16 23:45 Urine Urobilinogen 2.0 mg/dL (0.2-1.0) 12/24/16 23:45 RPR Titer Nonreactive (NONREACTIVE) 12/25/16 07:15 Assessment: 12/25/16 12:03 WITHDRAWAL SX Plan: CONTINUE DETOX
--- NOTE | 2016-12-25 14:20 | EKG ---
Test Reason : Blood Pressure : / mmHG Vent. Rate : 076 BPM Atrial Rate : 076 BPM P-R Int : 170 ms QRS Dur : 090 ms QT Int : 374 ms P-R-T Axes : 074 045 047 degrees QTc Int : 420 ms NORMAL SINUS RHYTHM POSSIBLE LEFT ATRIAL ENLARGEMENT BORDERLINE ECG WHEN COMPARED WITH ECG OF 07-JUL-2016 16:51, NO SIGNIFICANT CHANGE WAS FOUND Confirmed by BILLY PEÑA MD ([id number]) on 12/25/2016 2:20:07 PM Referred By: Confirmed By:BILLY PEÑA MD
[2016-12-25] MEDS: diphenhydrAMINE HCL 50 MG CAPSULE PO PRN (22:31)
[2016-12-25] MEDS: QUEtiapine FUMARATE 200 MG TABLET PO SCH (22:31)
[2016-12-25] MEDS: THIAMINE HCL 100 MG TABLET (FP) PO SCH (22:31)
[2016-12-26] MEDS: chlordiazePOXIDE HCL 25 MG CAPSULE PO SCH ×3 (06:05→17:27)
[2016-12-26] MEDS: PRENATAL VITAMINS W/ FOLIC ACID TABLET (FP) PO SCH (10:51)
[2016-12-26] MEDS: RALTEGRAVIR POTASSIUM 400 MG TAB PO SCH ×2 (10:51→22:05)
[2016-12-26] MEDS: SERTRALINE HCL 50 MG TABLET (FP) PO SCH (10:51)
[2016-12-26] MEDS: METHADONE HCL 5 MG TABLET (FOR DETOX USE ONLY) PO SCH (10:52)
[2016-12-26] MEDS: EMTRICITABINE 200MG/TENOFOVIR 300MG PO SCH (10:52)
[2016-12-26] MEDS: NICOTINE POLACRILEX 2 MG GUM BC PRN (10:55)
--- NOTE | 2016-12-26 12:36 | PN ---
[facility] CIWA - CIWA Score Nausea/Vomitin-No Nausea/No Vomiting Muscle Tremors: 4-Moderate,w/Arms Extend Anxiety: 4-Mod. Anxious/Guarded Agitation: 4-Moderately Restless Paroxysmal Sweats: 1-Minimal Palms Moist Orientation: 0-Oriented Tacttile Disturbances: 3-Moderate Itch/Numb/Burn Auditory Disturbances: 0-None Visual Disturbances: 0-None Headache: 0-None Present CIWA-Ar Total Score: 16 S COWS - Scale Resting Pulse: 0= CT 80 or Below Sweatin= Chills/Flushing Restless Observation: 3= Extraneous Movement Pupil Size: 0= Normal to Room Light Bone or Joint Aches: 4=Acute Joint/Muscle Pain Runny Nose/ Eye Tearin= Nasal Congestion GI Upset > 30mins: 1= Stomach Cramp Tremor Observation of Outstretched Hands: 1= Tremor [place]ow, Not Seen Yawning Observation: 1= 1-2x During Session Anxiety or Irritability: 2=Irritable/Anxious Goose Flesh Skin: 0=Smooth Skin COWS Score: 14 [facility] Progress Note (SOAP) Subjective: ANXIETY,SWEATS,FATIGUE. Objective: 12/26/16 12:36 Vital Signs Temperature 96.7 F L 12/26/16 09:59 Pulse Rate 76 12/26/16 09:59 Respiratory Rate 18 12/26/16 09:59 Blood Pressure 106/72 12/26/16 09:59 O2 Sat by Pulse Oximetry (%) Laboratory Last Values WBC 5.8 K/mm3 (4.0-10.0) 12/25/16 07:15 RBC 5.08 M/mm3 (4.00-5.60) 12/25/16 07:15 Hgb 13.3 GM/dL (11.7-16.9) 12/25/16 07:15 Hct 41.9 % (35.4-49) 12/25/16 07:15 MCV 82.4 fl (80-96) 12/25/16 07:15 MCH 26.2 pg (25.7-33.7) 12/25/16 07:15 MCHC 31.8 g/dl (32.0-35.9) L 12/25/16 07:15 RDW 15.4 % (11.9-15.9) D 12/25/16 07:15 Plt Count 186 K/MM3 (134-434) 12/25/16 07:15 MPV 7.5 fl (7.5-11.1) 12/25/16 07:15 Sodium 140 mmol/L (136-145) 12/25/16 07:15 Potassium 4.2 mmol/L (3.5-5.1) 12/25/16 07:15 Chloride 105 mmol/L (98-107) 12/25/16 07:15 Carbon Dioxide 30 mmol/L (21-32) 12/25/16 07:15 Anion Gap 5 (8-16) L 12/25/16 07:15 BUN 12 mg/dL (7-18) 12/25/16 07:15 Creatinine 1.1 mg/dL (0.7-1.3) 12/25/16 07:15 Creat Clearance w eGFR > 60 (>60) 12/25/16 07:15 Random Glucose 86 mg/dL (74-106) 12/25/16 07:15 Calcium 8.6 mg/dL (8.5-10.1) 12/25/16 07:15 Total Bilirubin 0.7 mg/dL (0.2-1.0) D 12/25/16 07:15 AST 55 U/L (15-37) H 12/25/16 07:15 ALT 49 U/L (12-78) 12/25/16 07:15 Alkaline Phosphatase 77 U/L (45-117) 12/25/16 07:15 Total Protein 6.7 g/dl (6.4-8.2) 12/25/16 07:15 Albumin 3.2 g/dl (3.4-5.0) L 12/25/16 07:15 Urine Color Maryse 12/24/16 23:45 Urine Appearance Slcloudy 12/24/16 23:45 Urine pH 6.0 (5.0-8.0) 12/24/16 23:45 Ur Specific [place] 1.025 (1.005-1.025) 12/24/16 23:45 Urine Protein Negative (NEGATIVE) 12/24/16 23:45 Urine Glucose (UA) Negative (NEGATIVE) 12/24/16 23:45 Urine Ketones Negative (NEGATIVE) 12/24/16 23:45 Urine Blood Negative (NEGATIVE) 12/24/16 23:45 Urine Nitrite Negative (NEGATIVE) 12/24/16 23:45 Urine Bilirubin Negative (NEGATIVE) 12/24/16 23:45 Urine Urobilinogen 2.0 mg/dL (0.2-1.0) 12/24/16 23:45 RPR Titer Nonreactive (NONREACTIVE) 12/25/16 07:15 Assessment: 12/26/16 12:36 WITHDRAWAL SX Plan: CONTINUE DETOX
[2016-12-26] MEDS: THIAMINE HCL 100 MG TABLET (FP) PO SCH (22:05)
[2016-12-26] MEDS: QUEtiapine FUMARATE 200 MG TABLET PO SCH (22:05)
[2016-12-26] MEDS: diphenhydrAMINE HCL 50 MG CAPSULE PO PRN (22:06)
[2016-12-26] MEDS: chlordiazePOXIDE 5 MG CAPSULE PO SCH (22:06)
[2016-12-27] MEDS: chlordiazePOXIDE 5 MG CAPSULE PO SCH ×3 (06:02→18:16)
[2016-12-27] MEDS: EMTRICITABINE 200MG/TENOFOVIR 300MG PO SCH (10:41)
[2016-12-27] MEDS: PRENATAL VITAMINS W/ FOLIC ACID TABLET (FP) PO SCH (10:42)
[2016-12-27] MEDS: SERTRALINE HCL 50 MG TABLET (FP) PO SCH (10:42)
[2016-12-27] MEDS: METHADONE HCL 5 MG TABLET (FOR DETOX USE ONLY) PO SCH (10:42)
[2016-12-27] MEDS: RALTEGRAVIR POTASSIUM 400 MG TAB PO SCH ×2 (10:42→22:31)
--- NOTE | 2016-12-27 16:09 | PN ---
[facility] Progress Note (SOAP) Subjective: Diarrhea, Sweating. Objective: PT. A & O X 3, OBSERVED AMBULATING ON UNIT WITH ASSISTANCE OF A CANE. NO ACUTE DISTRESS. 12/27/16 16:07 Vital Signs Temperature 99.1 F 12/27/16 10:06 Pulse Rate 68 12/27/16 10:06 Respiratory Rate 18 12/27/16 10:06 Blood Pressure 92/55 12/27/16 10:06 O2 Sat by Pulse Oximetry (%) Laboratory Tests 12/24/16 12/25/16 12/25/16 23:45 07:15 07:15 WBC 5.8 RBC 5.08 Hgb 13.3 Hct 41.9 MCV 82.4 MCH 26.2 MCHC 31.8 L RDW 15.4 D Plt Count 186 MPV 7.5 Sodium 140 Potassium 4.2 Chloride 105 Carbon Dioxide 30 Anion Gap 5 L BUN 12 Creatinine 1.1 Creat Clearance w eGFR > 60 Random Glucose 86 Calcium 8.6 Total Bilirubin 0.7 D AST 55 H ALT 49 Alkaline Phosphatase 77 Total Protein 6.7 Albumin 3.2 L Urine Color Maryse Urine Appearance Slcloudy Urine pH 6.0 Ur Specific [place] 1.025 Urine Protein Negative Urine Glucose (UA) Negative Urine Ketones Negative Urine Blood Negative Urine Nitrite Negative Urine Bilirubin Negative Urine Urobilinogen 2.0 RPR Titer 12/25/16 07:15 WBC RBC Hgb Hct MCV MCH MCHC RDW Plt Count MPV Sodium Potassium Chloride Carbon Dioxide Anion Gap BUN Creatinine Creat Clearance w eGFR Random Glucose Calcium Total Bilirubin AST ALT Alkaline Phosphatase Total Protein Albumin Urine Color Urine Appearance Urine pH Ur Specific [place] Urine Protein Urine Glucose (UA) Urine Ketones Urine Blood Urine Nitrite Urine Bilirubin Urine Urobilinogen RPR Titer Nonreactive LABS NOTED. Assessment: 12/27/16 16:08 WITHDRAWAL SYMPTOMS. Plan: CONTINUE DETOX. PRN IMMODIUM FOR DIARRHEA. INCREASE DAILY PO FLUID INTAKE.
[2016-12-27] MEDS: THIAMINE HCL 100 MG TABLET (FP) PO SCH (22:31)
[2016-12-27] MEDS: chlordiazePOXIDE HCL 10 MG CAPSULE PO SCH (22:31)
[2016-12-27] MEDS: QUEtiapine FUMARATE 200 MG TABLET PO SCH (22:32)
[2016-12-28] MEDS: chlordiazePOXIDE HCL 10 MG CAPSULE PO SCH ×3 (05:46→17:52)
[2016-12-28] MEDS ORDERED: METHADONE HCL 10 MG TABLET (FOR DETOX USE ONLY) PO SCH (10:00)
[2016-12-28] MEDS: EMTRICITABINE 200MG/TENOFOVIR 300MG PO SCH (10:49)
[2016-12-28] MEDS: PRENATAL VITAMINS W/ FOLIC ACID TABLET (FP) PO SCH (10:50)
[2016-12-28] MEDS: SERTRALINE HCL 50 MG TABLET (FP) PO SCH (10:50)
[2016-12-28] MEDS: RALTEGRAVIR POTASSIUM 400 MG TAB PO SCH ×2 (10:50→23:01)
--- NOTE | 2016-12-28 14:52 | PN ---
[facility] Progress Note (SOAP) Subjective: Sweating,interrupted sleep,restless Objective: 12/28/16 14:51 Vital Signs - 8 hr 12/28/16 12/28/16 09:25 13:28 Temperature 95.7 F L 97.3 F L Pulse Rate 78 91 H Respiratory 18 20 Rate Blood Pressure 106/60 113/72 Laboratory Last Values WBC 5.8 K/mm3 (4.0-10.0) 12/25/16 07:15 RBC 5.08 M/mm3 (4.00-5.60) 12/25/16 07:15 Hgb 13.3 GM/dL (11.7-16.9) 12/25/16 07:15 Hct 41.9 % (35.4-49) 12/25/16 07:15 MCV 82.4 fl (80-96) 12/25/16 07:15 MCH 26.2 pg (25.7-33.7) 12/25/16 07:15 MCHC 31.8 g/dl (32.0-35.9) L 12/25/16 07:15 RDW 15.4 % (11.9-15.9) D 12/25/16 07:15 Plt Count 186 K/MM3 (134-434) 12/25/16 07:15 MPV 7.5 fl (7.5-11.1) 12/25/16 07:15 Sodium 140 mmol/L (136-145) 12/25/16 07:15 Potassium 4.2 mmol/L (3.5-5.1) 12/25/16 07:15 Chloride 105 mmol/L (98-107) 12/25/16 07:15 Carbon Dioxide 30 mmol/L (21-32) 12/25/16 07:15 Anion Gap 5 (8-16) L 12/25/16 07:15 BUN 12 mg/dL (7-18) 12/25/16 07:15 Creatinine 1.1 mg/dL (0.7-1.3) 12/25/16 07:15 Creat Clearance w eGFR > 60 (>60) 12/25/16 07:15 Random Glucose 86 mg/dL (74-106) 12/25/16 07:15 Calcium 8.6 mg/dL (8.5-10.1) 12/25/16 07:15 Total Bilirubin 0.7 mg/dL (0.2-1.0) D 12/25/16 07:15 AST 55 U/L (15-37) H 12/25/16 07:15 ALT 49 U/L (12-78) 12/25/16 07:15 Alkaline Phosphatase 77 U/L (45-117) 12/25/16 07:15 Total Protein 6.7 g/dl (6.4-8.2) 12/25/16 07:15 Albumin 3.2 g/dl (3.4-5.0) L 12/25/16 07:15 Urine Color Maryse 12/24/16 23:45 Urine Appearance Slcloudy 12/24/16 23:45 Urine pH 6.0 (5.0-8.0) 12/24/16 23:45 Ur Specific [place] 1.025 (1.005-1.025) 12/24/16 23:45 Urine Protein Negative (NEGATIVE) 12/24/16 23:45 Urine Glucose (UA) Negative (NEGATIVE) 12/24/16 23:45 Urine Ketones Negative (NEGATIVE) 12/24/16 23:45 Urine Blood Negative (NEGATIVE) 12/24/16 23:45 Urine Nitrite Negative (NEGATIVE) 12/24/16 23:45 Urine Bilirubin Negative (NEGATIVE) 12/24/16 23:45 Urine Urobilinogen 2.0 mg/dL (0.2-1.0) 12/24/16 23:45 RPR Titer Nonreactive (NONREACTIVE) 12/25/16 07:15 labs noted Assessment: 12/28/16 14:51 Withdrawal sx. Plan: Continue detox
[2016-12-28] MEDS: QUEtiapine FUMARATE 200 MG TABLET PO SCH (23:01)
[2016-12-28] MEDS: THIAMINE HCL 100 MG TABLET (FP) PO SCH (23:01)
[2016-12-28] MEDS: diphenhydrAMINE HCL 50 MG CAPSULE PO PRN (23:02)
[2016-12-29] MEDS ORDERED: METHADONE HCL 5 MG TABLET (FOR DETOX USE ONLY) PO SCH (06:00)
[2016-12-29 06:25] VITALS: BP 98/60; PULSE 97; TEMP 96.8
[2016-12-29] MEDS: RALTEGRAVIR POTASSIUM 400 MG TAB PO SCH (09:05)
[2016-12-29] MEDS: EMTRICITABINE 200MG/TENOFOVIR 300MG PO SCH (09:05)
[2016-12-29] MEDS: SERTRALINE HCL 50 MG TABLET (FP) PO SCH (09:06)
--- NOTE | 2016-12-29 09:18 | DS ---
[facility] Detox Discharge Summary Admission Date: 12/24/16 Discharge Date: 12/29/16 - History Present History: Alcohol Dependence, Cocaine Dependence, Opioid Dependence Additional Comments: Detox completed. Alert and oriented x 3 and in no acute distress. Patient encouraged to follow up with PMD for medical management Pertinent Past History: Hep C, AIDS, Nicotine dependence, Neuropathy, PTSD - Physical Exam Results Vital Signs: Vital Signs Temperature 96.8 F L 12/29/16 06:24 Pulse Rate 97 H 12/29/16 06:24 Respiratory Rate 18 12/29/16 06:24 Blood Pressure 98/60 12/29/16 06:24 O2 Sat by Pulse Oximetry (%) Laboratory Last Values WBC 5.8 K/mm3 (4.0-10.0) 12/25/16 07:15 RBC 5.08 M/mm3 (4.00-5.60) 12/25/16 07:15 Hgb 13.3 GM/dL (11.7-16.9) 12/25/16 07:15 Hct 41.9 % (35.4-49) 12/25/16 07:15 MCV 82.4 fl (80-96) 12/25/16 07:15 MCH 26.2 pg (25.7-33.7) 12/25/16 07:15 MCHC 31.8 g/dl (32.0-35.9) L 12/25/16 07:15 RDW 15.4 % (11.9-15.9) D 12/25/16 07:15 Plt Count 186 K/MM3 (134-434) 12/25/16 07:15 MPV 7.5 fl (7.5-11.1) 12/25/16 07:15 Sodium 140 mmol/L (136-145) 12/25/16 07:15 Potassium 4.2 mmol/L (3.5-5.1) 12/25/16 07:15 Chloride 105 mmol/L (98-107) 12/25/16 07:15 Carbon Dioxide 30 mmol/L (21-32) 12/25/16 07:15 Anion Gap 5 (8-16) L 12/25/16 07:15 BUN 12 mg/dL (7-18) 12/25/16 07:15 Creatinine 1.1 mg/dL (0.7-1.3) 12/25/16 07:15 Creat Clearance w eGFR > 60 (>60) 12/25/16 07:15 Random Glucose 86 mg/dL (74-106) 12/25/16 07:15 Calcium 8.6 mg/dL (8.5-10.1) 12/25/16 07:15 Total Bilirubin 0.7 mg/dL (0.2-1.0) D 12/25/16 07:15 AST 55 U/L (15-37) H 12/25/16 07:15 ALT 49 U/L (12-78) 12/25/16 07:15 Alkaline Phosphatase 77 U/L (45-117) 12/25/16 07:15 Total Protein 6.7 g/dl (6.4-8.2) 12/25/16 07:15 Albumin 3.2 g/dl (3.4-5.0) L 12/25/16 07:15 Urine Color Maryse 12/24/16 23:45 Urine Appearance Slcloudy 12/24/16 23:45 Urine pH 6.0 (5.0-8.0) 12/24/16 23:45 Ur Specific [place] 1.025 (1.005-1.025) 12/24/16 23:45 Urine Protein Negative (NEGATIVE) 12/24/16 23:45 Urine Glucose (UA) Negative (NEGATIVE) 12/24/16 23:45 Urine Ketones Negative (NEGATIVE) 12/24/16 23:45 Urine Blood Negative (NEGATIVE) 12/24/16 23:45 Urine Nitrite Negative (NEGATIVE) 12/24/16 23:45 Urine Bilirubin Negative (NEGATIVE) 12/24/16 23:45 Urine Urobilinogen 2.0 mg/dL (0.2-1.0) 12/24/16 23:45 RPR Titer Nonreactive (NONREACTIVE) 12/25/16 07:15 Labs noted. Will F/U with PMD Pertinent Admission Physical Exam Findings: Withdrawal sx - Treatment Hospital Course: Detox Protocol Followed, Detoxed Safely, Responded well, Discharged Condition Good Patient has Accepted a Rehab Referral to: [facility]/ [facility]. - Medication Discharge Medications: Ambulatory Orders Emtricitabine/Tenofovir [Truvada -] 1 tab PO DAILY #0 tablet 06/08/13 Raltegravir [Isentress] 400 mg PO BID 04/27/16 Quetiapine Fumarate [Seroquel] 100 mg PO HS #30 tablet 04/28/16 Sertraline HCl [Zoloft -] 100 mg PO DAILY #30 tablet 04/28/16 - Diagnosis (1) Alcohol dependence with uncomplicated withdrawal Current Visit: Yes Status: Acute (2) Nicotine dependence Current Visit: Yes Status: Acute Qualifiers: Nicotine product type: cigarettes Substance use status: in withdrawal Qualified Code(s): F17.213 - Nicotine dependence, cigarettes, with withdrawal; F17.213 - Nicotine dependence, cigarettes, with withdrawal (3) Opioid dependence with withdrawal Current Visit: Yes Status: Acute (4) Acquired immune deficiency syndrome (AIDS) Current Visit: Yes Status: Chronic (5) Hepatitis C Current Visit: Yes Status: Chronic Qualifiers: Viral hepatitis chronicity: chronic Hepatic coma status: without hepatic coma Qualified Code(s): B18.2 - Chronic viral hepatitis C; B18.2 - Chronic viral hepatitis C; B18.2 - Chronic viral hepatitis C; B18.2 - Chronic viral hepatitis C (6) Neuropathy Current Visit: Yes Status: Chronic (7) PTSD (post-traumatic stress disorder) Current Visit: No Status: Chronic - AMA Did Patient Leave Against Medical Advice: No
[2016-12-29] MEDS: PRENATAL VITAMINS W/ FOLIC ACID TABLET (FP) PO SCH (11:14)
--- NOTE | 2016-12-29 16:06 | PN ---
[facility] Progress Note Note: PATIENT DISCHARGED AND NOTE REVIEWED WITH Waqar Chery np
== END 2016-12-29 09:10 | disposition home or self-care (01) | DRG 773 ==
LOC: YASAS 14:44 → Y3N 20:36
PROVIDERS: ADMIT Internal Medicine; ATTEND Internal Medicine
PROC: HZ2ZZZZ Detoxification Services for Substance Abuse Treatment (ICD-10-PCS; principal; 2016-12-24)
DX: F11.23 Opioid dependence with withdrawal (principal); F10.230 Alcohol dependence with withdrawal, uncomplicated; F14.20 Cocaine dependence, uncomplicated; F17.213 Nicotine dependence, cigarettes, with withdrawal; F43.10 Post-traumatic stress disorder, unspecified; F31.9 Bipolar disorder, unspecified; B20 Human immunodeficiency virus [HIV] disease; B18.2 Chronic viral hepatitis C; G62.9 Polyneuropathy, unspecified; R26.2 Difficulty in walking, not elsewhere classified; Z99.89 Dependence on other enabling machines and devices
CPT/HCPCS: 36415; 80053; 81003; 85027; 86593; 93005; 93010

== ENCOUNTER 2017-11-29 10:41 | Inpatient (IN) | payer OTHER ==
[2017-11-29 13:31] VITALS: BMI 22.2
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
[2017-11-29] MEDS ORDERED: ACETAMINOPHEN 325 MG TABLET (FP) PO PRN (16:05)
[2017-11-29] MEDS ORDERED: METHADONE HCL 10 MG TABLET (FOR DETOX USE ONLY) PO ONE ×2 (16:05→23:00)
[2017-11-29] MEDS ORDERED: chlordiazePOXIDE HCL 25 MG CAPSULE PO PRN (16:05)
[2017-11-29] MEDS ORDERED: MENTHOL/PHENOL 1 EACH UD MM PRN (16:05)
[2017-11-29] MEDS ORDERED: IBUPROFEN 400 MG TABLET (FP) PO PRN (16:05)
[2017-11-29] MEDS ORDERED: MAG HYDROX/AL HYDROX/SIMETH 30 ML UNIT-DOSE CUP PO PRN (16:05)
[2017-11-29] MEDS ORDERED: MAGNESIUM CITRATE 300 ML BOTTLE PO PRN (16:05)
[2017-11-29] MEDS ORDERED: P-EPHED 60MG/TRIPROLIDI 2.5MG TABLET PO PRN (16:05)
[2017-11-29] MEDS ORDERED: MAGNESIUM HYDROX 2400MG/30ML ORAL SUSPENSION 30 ML CUP PO PRN (16:05)
[2017-11-29] MEDS ORDERED: LOPERAMIDE HCL 2 MG CAPSULE PO PRN (16:05)
[2017-11-29] MEDS ORDERED: guaiFENesin/D-METHORPHAN HB 10 ML UNIT-DOSE CUPS PO PRN (16:05)
[2017-11-29] MEDS: chlordiazePOXIDE HCL 25 MG CAPSULE PO SCH ×2 (17:22→22:43)
[2017-11-29] MEDS: NICOTINE 21 MG/24 HOURS TOPICAL PATCH TD SCH (17:23)
[2017-11-29] MEDS: EMTRICITABINE 200MG/TENOFOVIR 300MG PO SCH (18:41)
[2017-11-29 21:42] LABS: URINE APPEARANCE SLCLOUDY; URINE BILIRUBIN NEGATIVE (<2.0 mg/dL); URINE COLOR DKYELLOW; URINE GLUCOSE (UA) NEGATIVE (NEGATIVE); URINE KETONE NEGATIVE (NEGATIVE); URINE LEUK ESTERASE NEGATIVE (NEGATIVE); URINE NITRITE NEGATIVE (NEGATIVE); URINE PROTEIN NEGATIVE (NEGATIVE); URINE UROBILINOGEN NEGATIVE mg/dL (0.2-1.0)
[2017-11-29] MEDS ORDERED: MELATONIN 5 MG TABLETS PO PRN (22:00)
[2017-11-29] MEDS: BACITRACIN 0.9 GM PACKET TP SCH (22:43)
[2017-11-29] MEDS: RALTEGRAVIR POTASSIUM 400 MG TAB PO SCH (22:43)
[2017-11-29] MEDS: THIAMINE HCL 100 MG TABLET (FP) PO SCH (22:43)
[2017-11-30] MEDS: chlordiazePOXIDE HCL 25 MG CAPSULE PO SCH ×4 (05:45→22:15)
[2017-11-30] MEDS ORDERED: METHADONE HCL 10 MG TABLET (FOR DETOX USE ONLY) PO SCH (10:00)
[2017-11-30 10:15] LABS: HEMATOCRIT 40.5 % (35.4-49); HEMOGLOBIN 13.4 GM/dL (11.7-16.9); MCH 27.7 pg (25.7-33.7); MEAN CELL VOLUME 84.1 fl (80-96); PLATELET COUNT 183 K/MM3 (134-434); RBC 4.82 M/mm3 (4.00-5.60); RDW 13.5 % (11.9-15.9); WHITE BLOOD COUNT 5.8 K/mm3 (4.0-10.0)
[2017-11-30] MEDS: RALTEGRAVIR POTASSIUM 400 MG TAB PO SCH ×2 (10:18→22:15)
[2017-11-30] MEDS: PRENATAL VITAMINS W/ FOLIC ACID TABLET (FP) PO SCH (10:19)
[2017-11-30] MEDS: BACITRACIN 0.9 GM PACKET TP SCH ×2 (10:19→22:15)
[2017-11-30] MEDS: NICOTINE 21 MG/24 HOURS TOPICAL PATCH TD SCH (10:19)
[2017-11-30 10:24] LABS: ALBUMIN 3.2 g/dl (3.4-5.0); ANION GAP 7 MMOL/L (8-16); BLOOD UREA NITROGEN 16 mg/dL (7-18); CALCIUM 8.8 mg/dL (8.5-10.1); CHLORIDE 107 mmol/L (98-107); CO2 28 mmol/L (21-32); GLUCOSE,RANDOM 93 mg/dL (74-106); POTASSIUM 4.4 mmol/L (3.5-5.1); SGOT/AST 20 U/L (15-37); SGPT/ALT 29 U/L (12-78); SODIUM 142 mmol/L (136-145)
[2017-11-30 10:26] LABS: ALK PHOS 73 U/L (45-117); BILIRUBIN,TOTAL 0.3 mg/dL (0.2-1.0); CREATININE 1.1 mg/dL (0.7-1.3); TOT PROT 6.8 g/dl (6.4-8.2)
--- NOTE | 2017-11-30 11:23 | EKG ---
Test Reason : Blood Pressure : / mmHG Vent. Rate : 045 BPM Atrial Rate : 045 BPM P-R Int : 168 ms QRS Dur : 094 ms QT Int : 436 ms P-R-T Axes : 079 066 058 degrees QTc Int : 377 ms SINUS BRADYCARDIA POSSIBLE LEFT ATRIAL ENLARGEMENT BORDERLINE ECG WHEN COMPARED WITH ECG OF 24-DEC-2016 21:44, VENT. RATE HAS DECREASED BY 31 BPM Confirmed by WALTER BOLIVAR MD ([id number]) on 11/30/2017 11:23:00 AM Referred By: Cristiane Rendon Confirmed By:WALTER BOLIVAR MD
[2017-11-30] MEDS: EMTRICITABINE 200MG/TENOFOVIR 300MG PO SCH (11:41)
--- NOTE | 2017-11-30 14:43 | PN ---
S CIWA - CIWA Score Nausea/Vomitin Muscle Tremors: 3 Anxiety: 3 Agitation: 2 Paroxysmal Sweats: 3 Orientation: 0-Oriented Tacttile Disturbances: 0-None Auditory Disturbances: 0-None Visual Disturbances: 0-None Headache: 0-None Present CIWA-Ar Total Score: 13 [facility] COWS - Scale Resting Pulse: 1= [place] 81-100 Sweatin=Flushed/Facial Moisture Restless Observation: 1= Difficult to Sit Still Pupil Size: 0= Normal to Room Light Bone or Joint Aches: 1= Mild Discomfort Runny Nose/ Eye Tearin= Nasal Congestion GI Upset > 30mins: 1= Stomach Cramp Tremor Observation of Outstretched Hands: 2= Slight Tremor Visible Yawning Observation: 1= 1-2x During Session Anxiety or Irritability: 1=Feels Anxious/Irritable Goose Flesh Skin: 0=Smooth Skin COWS Score: 11 [facility] Progress Note (SOAP) Subjective: sweats sleep disturbance diarrhea Objective: 11/30/17 14:41 A & Ox 3 In day room socializing with others not in acute distress Vital Signs Temperature 98.6 F 11/30/17 13:27 Pulse Rate 80 11/30/17 13:27 Respiratory Rate 18 11/30/17 13:27 Blood Pressure 123/72 11/30/17 13:27 O2 Sat by Pulse Oximetry (%) Laboratory Last Values WBC 5.8 K/mm3 (4.0-10.0) 11/30/17 07:00 RBC 4.82 M/mm3 (4.00-5.60) 11/30/17 07:00 Hgb 13.4 GM/dL (11.7-16.9) 11/30/17 07:00 Hct 40.5 % (35.4-49) 11/30/17 07:00 MCV 84.1 fl (80-96) 11/30/17 07:00 MCH 27.7 pg (25.7-33.7) 11/30/17 07:00 MCHC 33.0 g/dl (32.0-35.9) 11/30/17 07:00 RDW 13.5 % (11.9-15.9) D 11/30/17 07:00 Plt Count 183 K/MM3 (134-434) 11/30/17 07:00 MPV 7.0 fl (7.5-11.1) L 11/30/17 07:00 Sodium 142 mmol/L (136-145) 11/30/17 07:00 Potassium 4.4 mmol/L (3.5-5.1) 11/30/17 07:00 Chloride 107 mmol/L (98-107) 11/30/17 07:00 Carbon Dioxide 28 mmol/L (21-32) 11/30/17 07:00 Anion Gap 7 MMOL/L (8-16) L 11/30/17 07:00 BUN 16 mg/dL (7-18) 11/30/17 07:00 Creatinine 1.1 mg/dL (0.7-1.3) 11/30/17 07:00 Creat Clearance w eGFR > 60 (>60) 11/30/17 07:00 Random Glucose 93 mg/dL (74-106) 11/30/17 07:00 Calcium 8.8 mg/dL (8.5-10.1) 11/30/17 07:00 Total Bilirubin 0.3 mg/dL (0.2-1.0) 11/30/17 07:00 AST 20 U/L (15-37) D 11/30/17 07:00 ALT 29 U/L (12-78) D 11/30/17 07:00 Alkaline Phosphatase 73 U/L (45-117) 11/30/17 07:00 Total Protein 6.8 g/dl (6.4-8.2) 11/30/17 07:00 Albumin 3.2 g/dl (3.4-5.0) L 11/30/17 07:00 Urine Color [place] 11/29/17 18:00 Urine Appearance Slcloudy 11/29/17 18:00 Urine pH 7.0 (5.0-8.0) 11/29/17 18:00 Ur Specific [place] 1.019 (1.001-1.035) 11/29/17 18:00 Urine Protein Negative (NEGATIVE) 11/29/17 18:00 Urine Glucose (UA) Negative (NEGATIVE) 11/29/17 18:00 Urine Ketones Negative (NEGATIVE) 11/29/17 18:00 Urine Blood Negative (NEGATIVE) 11/29/17 18:00 Urine Nitrite Negative (NEGATIVE) 11/29/17 18:00 Urine Bilirubin Negative (<2.0 mg/dL) 11/29/17 18:00 Urine Urobilinogen Negative mg/dL (0.2-1.0) 11/29/17 18:00 Ur Leukocyte Esterase Negative (NEGATIVE) 11/29/17 18:00 RPR Titer Nonreactive (NONREACTIVE) 11/30/17 07:00 labs noted Assessment: 11/30/17 14:42 withdrawal sx Plan: continue detox
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
[2017-11-30] MEDS: QUEtiapine FUMARATE 100 MG TABLET (FP) PO SCH (22:15)
[2017-11-30] MEDS: THIAMINE HCL 100 MG TABLET (FP) PO SCH (22:15)
[2017-12-01] MEDS: chlordiazePOXIDE HCL 25 MG CAPSULE PO SCH ×2 (06:09→10:31)
[2017-12-01] MEDS: BACITRACIN 0.9 GM PACKET TP SCH ×2 (10:31→22:21)
[2017-12-01] MEDS: RALTEGRAVIR POTASSIUM 400 MG TAB PO SCH ×2 (10:31→22:19)
[2017-12-01] MEDS: PRENATAL VITAMINS W/ FOLIC ACID TABLET (FP) PO SCH (10:31)
[2017-12-01] MEDS: SERTRALINE HCL 50 MG TABLET (FP) PO SCH (10:31)
[2017-12-01] MEDS: METHADONE HCL 5 MG TABLET (FOR DETOX USE ONLY) PO SCH (10:32)
[2017-12-01] MEDS: NICOTINE 21 MG/24 HOURS TOPICAL PATCH TD SCH (10:32)
[2017-12-01] MEDS: EMTRICITABINE 200MG/TENOFOVIR 300MG PO SCH (10:32)
--- NOTE | 2017-12-01 14:06 | PN ---
[facility] CIWA - CIWA Score Nausea/Vomitin-No Nausea/No Vomiting Muscle Tremors: 4-Moderate,w/Arms Extend Anxiety: 4-Mod. Anxious/Guarded Agitation: 4-Moderately Restless Paroxysmal Sweats: 1-Minimal Palms Moist Orientation: 0-Oriented Tacttile Disturbances: 0-None Auditory Disturbances: 0-None Visual Disturbances: 0-None Headache: 0-None Present CIWA-Ar Total Score: 13 S COWS - Scale Resting Pulse: 2= [place] 101-120 Sweatin= Chills/Flushing Restless Observation: 3= Extraneous Movement Pupil Size: 2= Moderately Dilated Bone or Joint Aches: 1= Mild Discomfort Runny Nose/ Eye Tearin= None GI Upset > 30mins: 0= None Tremor Observation of Outstretched Hands: 1= Tremor [place], Not Seen Yawning Observation: 0= None Anxiety or Irritability: 2=Irritable/Anxious Goose Flesh Skin: 0=Smooth Skin COWS Score: 12 S Progress Note (SOAP) Subjective: ANXIETY, SEATS/CHILLS,FATIGUE. Objective: 12/01/17 14:05 Vital Signs 12/01/17 12/01/17 12/01/17 06:46 09:11 13:43 Temperature 97.6 F 96.8 F L 97.2 F L Pulse Rate 90 94 H 101 H Respiratory 18 18 18 Rate Blood Pressure 113/73 102/70 116/69 Laboratory Tests 11/29/17 11/30/17 11/30/17 18:00 07:00 07:00 WBC 5.8 RBC 4.82 Hgb 13.4 Hct 40.5 MCV 84.1 MCH 27.7 MCHC 33.0 RDW 13.5 D Plt Count 183 MPV 7.0 L Sodium 142 Potassium 4.4 Chloride 107 Carbon Dioxide 28 Anion Gap 7 L BUN 16 Creatinine 1.1 Creat Clearance w eGFR > 60 Random Glucose 93 Calcium 8.8 Total Bilirubin 0.3 AST 20 D ALT 29 D Alkaline Phosphatase 73 Total Protein 6.8 Albumin 3.2 L Urine Color Dkyellow Urine Appearance Slcloudy Urine pH 7.0 Ur Specific [place] 1.019 Urine Protein Negative Urine Glucose (UA) Negative Urine Ketones Negative Urine Blood Negative Urine Nitrite Negative Urine Bilirubin Negative Urine Urobilinogen Negative Ur Leukocyte Esterase Negative RPR Titer 11/30/17 07:00 WBC RBC Hgb Hct MCV MCH MCHC RDW Plt Count MPV Sodium Potassium Chloride Carbon Dioxide Anion Gap BUN Creatinine Creat Clearance w eGFR Random Glucose Calcium Total Bilirubin AST ALT Alkaline Phosphatase Total Protein Albumin Urine Color Urine Appearance Urine pH Ur Specific [place] Urine Protein Urine Glucose (UA) Urine Ketones Urine Blood Urine Nitrite Urine Bilirubin Urine Urobilinogen Ur Leukocyte Esterase RPR Titer Nonreactive Assessment: 12/01/17 14:06 WITHDRAWAL SX- Plan: CONTINUE DETOX
[2017-12-01] MEDS: chlordiazePOXIDE 5 MG CAPSULE PO SCH ×2 (17:02→22:19)
[2017-12-01] MEDS: THIAMINE HCL 100 MG TABLET (FP) PO SCH (22:19)
[2017-12-01] MEDS: QUEtiapine FUMARATE 100 MG TABLET (FP) PO SCH (22:19)
[2017-12-02] MEDS: chlordiazePOXIDE 5 MG CAPSULE PO SCH ×2 (05:39→10:21)
[2017-12-02] MEDS: BACITRACIN 0.9 GM PACKET TP SCH ×2 (09:56→22:05)
[2017-12-02] MEDS: PRENATAL VITAMINS W/ FOLIC ACID TABLET (FP) PO SCH (09:56)
[2017-12-02] MEDS: SERTRALINE HCL 50 MG TABLET (FP) PO SCH (09:56)
[2017-12-02] MEDS: RALTEGRAVIR POTASSIUM 400 MG TAB PO SCH ×2 (09:56→22:05)
[2017-12-02] MEDS: EMTRICITABINE 200MG/TENOFOVIR 300MG PO SCH (09:57)
[2017-12-02] MEDS: NICOTINE 21 MG/24 HOURS TOPICAL PATCH TD SCH (10:21)
[2017-12-02] MEDS: METHADONE HCL 5 MG TABLET (FOR DETOX USE ONLY) PO SCH (10:21)
--- NOTE | 2017-12-02 15:24 | PN ---
[facility] Progress Note (SOAP) Subjective: ANXIETY,SWEATS,BACK ACHE, FATIGUE. Objective: 12/02/17 15:24 Vital Signs 12/02/17 12/02/17 09:16 13:25 Temperature 98.3 F 97.1 F L Pulse Rate 89 91 H Respiratory 18 20 Rate Blood Pressure 114/66 114/70 Laboratory Tests 11/29/17 11/30/17 11/30/17 18:00 07:00 07:00 WBC 5.8 RBC 4.82 Hgb 13.4 Hct 40.5 MCV 84.1 MCH 27.7 MCHC 33.0 RDW 13.5 D Plt Count 183 MPV 7.0 L Sodium 142 Potassium 4.4 Chloride 107 Carbon Dioxide 28 Anion Gap 7 L BUN 16 Creatinine 1.1 Creat Clearance w eGFR > 60 Random Glucose 93 Calcium 8.8 Total Bilirubin 0.3 AST 20 D ALT 29 D Alkaline Phosphatase 73 Total Protein 6.8 Albumin 3.2 L Urine Color Dkyellow Urine Appearance Slcloudy Urine pH 7.0 Ur Specific [place] 1.019 Urine Protein Negative Urine Glucose (UA) Negative Urine Ketones Negative Urine Blood Negative Urine Nitrite Negative Urine Bilirubin Negative Urine Urobilinogen Negative Ur Leukocyte Esterase Negative RPR Titer 11/30/17 07:00 WBC RBC Hgb Hct MCV MCH MCHC RDW Plt Count MPV Sodium Potassium Chloride Carbon Dioxide Anion Gap BUN Creatinine Creat Clearance w eGFR Random Glucose Calcium Total Bilirubin AST ALT Alkaline Phosphatase Total Protein Albumin Urine Color Urine Appearance Urine pH Ur Specific [place] Urine Protein Urine Glucose (UA) Urine Ketones Urine Blood Urine Nitrite Urine Bilirubin Urine Urobilinogen Ur Leukocyte Esterase RPR Titer Nonreactive Assessment: 12/02/17 15:24 WITHDRAWAL SX Plan: CONTINUE DETOX
[2017-12-02] MEDS: LIDOCAINE 5% TOPICAL PATCH TP SCH (15:39)
[2017-12-02] MEDS: chlordiazePOXIDE HCL 10 MG CAPSULE PO SCH ×2 (16:55→22:05)
[2017-12-02] MEDS: THIAMINE HCL 100 MG TABLET (FP) PO SCH (22:05)
[2017-12-02] MEDS: LIDOCAINE PATCH REMOVAL MC SCH (22:05)
[2017-12-02] MEDS: QUEtiapine FUMARATE 100 MG TABLET (FP) PO SCH (22:05)
[2017-12-03] MEDS: chlordiazePOXIDE HCL 10 MG CAPSULE PO SCH ×2 (05:47→10:17)
[2017-12-03] MEDS ORDERED: METHADONE HCL 10 MG TABLET (FOR DETOX USE ONLY) PO SCH (10:00)
[2017-12-03] MEDS: RALTEGRAVIR POTASSIUM 400 MG TAB PO SCH ×2 (10:17→22:16)
[2017-12-03] MEDS: SERTRALINE HCL 50 MG TABLET (FP) PO SCH (10:17)
[2017-12-03] MEDS: BACITRACIN 0.9 GM PACKET TP SCH ×2 (10:17→22:15)
[2017-12-03] MEDS: NICOTINE 21 MG/24 HOURS TOPICAL PATCH TD SCH (10:17)
[2017-12-03] MEDS: PRENATAL VITAMINS W/ FOLIC ACID TABLET (FP) PO SCH (10:17)
[2017-12-03] MEDS: EMTRICITABINE 200MG/TENOFOVIR 300MG PO SCH (10:18)
[2017-12-03] MEDS: LIDOCAINE 5% TOPICAL PATCH TP SCH (10:19)
--- NOTE | 2017-12-03 15:46 | PN ---
[facility] CIWA - CIWA Score Nausea/Vomitin-No Nausea/No Vomiting Muscle Tremors: None Anxiety: 0-No Anxiety, at Ease Agitation: 0-Normal Activity Paroxysmal Sweats: No Perspiration Orientation: 0-Oriented Tacttile Disturbances: 0-None Auditory Disturbances: 0-None Headache: 0-None Present S COWS - Scale Resting Pulse: 1= [place] 81-100 Sweatin= Chills/Flushing Restless Observation: 0= Sits Still Pupil Size: 0= Normal to Room Light Bone or Joint Aches: 1= Mild Discomfort Runny Nose/ Eye Tearin= None GI Upset > 30mins: 0= None Tremor Observation of Outstretched Hands: 0= None Yawning Observation: 0= None Anxiety or Irritability: 0= None Goose Flesh Skin: 0=Smooth Skin COWS Score: 3 [facility] Progress Note (SOAP) Subjective: PATIENT PRESENTS WITH MILD BODY ACHES AND CHILLS. Objective: 12/03/17 15:45 Vital Signs Temperature 97.8 F 12/03/17 13:57 Pulse Rate 105 H 12/03/17 13:57 Respiratory Rate 16 12/03/17 13:57 Blood Pressure 98/67 12/03/17 13:57 O2 Sat by Pulse Oximetry (%) Laboratory Tests 11/29/17 11/30/17 11/30/17 18:00 07:00 07:00 WBC 5.8 RBC 4.82 Hgb 13.4 Hct 40.5 MCV 84.1 MCH 27.7 MCHC 33.0 RDW 13.5 D Plt Count 183 MPV 7.0 L Sodium 142 Potassium 4.4 Chloride 107 Carbon Dioxide 28 Anion Gap 7 L BUN 16 Creatinine 1.1 Creat Clearance w eGFR > 60 Random Glucose 93 Calcium 8.8 Total Bilirubin 0.3 AST 20 D ALT 29 D Alkaline Phosphatase 73 Total Protein 6.8 Albumin 3.2 L Urine Color Dkyellow Urine Appearance Slcloudy Urine pH 7.0 Ur Specific [place] 1.019 Urine Protein Negative Urine Glucose (UA) Negative Urine Ketones Negative Urine Blood Negative Urine Nitrite Negative Urine Bilirubin Negative Urine Urobilinogen Negative Ur Leukocyte Esterase Negative RPR Titer 11/30/17 07:00 WBC RBC Hgb Hct MCV MCH MCHC RDW Plt Count MPV Sodium Potassium Chloride Carbon Dioxide Anion Gap BUN Creatinine Creat Clearance w eGFR Random Glucose Calcium Total Bilirubin AST ALT Alkaline Phosphatase Total Protein Albumin Urine Color Urine Appearance Urine pH Ur Specific [place] Urine Protein Urine Glucose (UA) Urine Ketones Urine Blood Urine Nitrite Urine Bilirubin Urine Urobilinogen Ur Leukocyte Esterase RPR Titer Nonreactive SKIN: WARM AND DRY CAR: S1S2 RESP: CTA BL EXT: NO EDEMA Assessment: 12/03/17 15:46 WITHDRAWAL SYNDROME Plan: CONTINUE DETOX PER PROTOCOL.
[2017-12-03] MEDS: QUEtiapine FUMARATE 100 MG TABLET (FP) PO SCH (22:16)
[2017-12-03] MEDS: THIAMINE HCL 100 MG TABLET (FP) PO SCH (22:16)
[2017-12-03] MEDS: LIDOCAINE PATCH REMOVAL MC SCH (22:17)
[2017-12-04] MEDS ORDERED: METHADONE HCL 5 MG TABLET (FOR DETOX USE ONLY) PO SCH (06:00)
--- NOTE | 2017-12-04 08:42 | DS ---
[facility] Detox Discharge Summary Admission Date: 11/29/17 Discharge Date: 12/04/17 - History Present History: Alcohol Dependence, Cocaine Dependence, Opioid Dependence Additional Comments: Patient medically stable. Follow with primary care provider within 1 - 2 weeks. If worsening symptoms are present go to local ED. Pertinent Past History: Vital Signs Temperature 97 F L 12/04/17 06:24 Pulse Rate 85 12/04/17 06:24 Respiratory Rate 18 12/04/17 06:24 Blood Pressure 101/59 12/04/17 06:24 O2 Sat by Pulse Oximetry (%) Laboratory Last Values WBC 5.8 K/mm3 (4.0-10.0) 11/30/17 07:00 RBC 4.82 M/mm3 (4.00-5.60) 11/30/17 07:00 Hgb 13.4 GM/dL (11.7-16.9) 11/30/17 07:00 Hct 40.5 % (35.4-49) 11/30/17 07:00 MCV 84.1 fl (80-96) 11/30/17 07:00 MCH 27.7 pg (25.7-33.7) 11/30/17 07:00 MCHC 33.0 g/dl (32.0-35.9) 11/30/17 07:00 RDW 13.5 % (11.9-15.9) D 11/30/17 07:00 Plt Count 183 K/MM3 (134-434) 11/30/17 07:00 MPV 7.0 fl (7.5-11.1) L 11/30/17 07:00 Sodium 142 mmol/L (136-145) 11/30/17 07:00 Potassium 4.4 mmol/L (3.5-5.1) 11/30/17 07:00 Chloride 107 mmol/L (98-107) 11/30/17 07:00 Carbon Dioxide 28 mmol/L (21-32) 11/30/17 07:00 Anion Gap 7 MMOL/L (8-16) L 11/30/17 07:00 BUN 16 mg/dL (7-18) 11/30/17 07:00 Creatinine 1.1 mg/dL (0.7-1.3) 11/30/17 07:00 Creat Clearance w eGFR > 60 (>60) 11/30/17 07:00 Random Glucose 93 mg/dL (74-106) 11/30/17 07:00 Calcium 8.8 mg/dL (8.5-10.1) 11/30/17 07:00 Total Bilirubin 0.3 mg/dL (0.2-1.0) 11/30/17 07:00 AST 20 U/L (15-37) D 11/30/17 07:00 ALT 29 U/L (12-78) D 11/30/17 07:00 Alkaline Phosphatase 73 U/L (45-117) 11/30/17 07:00 Total Protein 6.8 g/dl (6.4-8.2) 11/30/17 07:00 Albumin 3.2 g/dl (3.4-5.0) L 11/30/17 07:00 Urine Color Dkyellow 11/29/17 18:00 Urine Appearance Slcloudy 11/29/17 18:00 Urine pH 7.0 (5.0-8.0) 11/29/17 18:00 Ur Specific [place] 1.019 (1.001-1.035) 11/29/17 18:00 Urine Protein Negative (NEGATIVE) 11/29/17 18:00 Urine Glucose (UA) Negative (NEGATIVE) 11/29/17 18:00 Urine Ketones Negative (NEGATIVE) 11/29/17 18:00 Urine Blood Negative (NEGATIVE) 11/29/17 18:00 Urine Nitrite Negative (NEGATIVE) 11/29/17 18:00 Urine Bilirubin Negative (<2.0 mg/dL) 11/29/17 18:00 Urine Urobilinogen Negative mg/dL (0.2-1.0) 11/29/17 18:00 Ur Leukocyte Esterase Negative (NEGATIVE) 11/29/17 18:00 RPR Titer Nonreactive (NONREACTIVE) 11/30/17 07:00 - Physical Exam Results Vital Signs: Vital Signs Temperature 97 F L 12/04/17 06:24 Pulse Rate 85 12/04/17 06:24 Respiratory Rate 18 12/04/17 06:24 Blood Pressure 101/59 12/04/17 06:24 O2 Sat by Pulse Oximetry (%) - Treatment Hospital Course: Detox Protocol Followed, Detoxed Safely, Responded well, Discharged Condition Good Patient has Accepted a Rehab Referral to: Follow up with out patient programs - Medication Discharge Medications: Ambulatory Orders Emtricitabine/Tenofovir [Truvada -] 1 tab PO DAILY #0 tablet 06/08/13 Raltegravir [Isentress] 400 mg PO BID 04/27/16 Sertraline HCl [Zoloft -] 100 mg PO DAILY #30 tablet 04/28/16 Quetiapine Fumarate [Seroquel] 200 mg PO HS 11/29/17 Quetiapine Fumarate [Seroquel -] 200 mg PO HS #30 tab 12/02/17 Sertraline HCl [Zoloft] 100 mg PO DAILY #30 tablet 12/02/17 - Diagnosis (1) Alcohol dependence with uncomplicated withdrawal Status: Acute (2) Cocaine dependence Status: Acute Qualifiers: Substance use status: uncomplicated Qualified Code(s): F14.20 - Cocaine dependence, uncomplicated (3) Insomnia Status: Acute (4) Nicotine dependence Status: Acute Qualifiers: Nicotine product type: cigarettes Substance use status: in withdrawal Qualified Code(s): F17.213 - Nicotine dependence, cigarettes, with withdrawal (5) Opioid dependence with withdrawal Status: Acute (6) Acquired immune deficiency syndrome (AIDS) Status: Chronic (7) Hepatitis C Status: Chronic Qualifiers: Viral hepatitis chronicity: chronic Hepatic coma status: without hepatic coma Qualified Code(s): B18.2 - Chronic viral hepatitis C (8) Weight loss Status: Chronic (9) Neuropathy Status: Chronic - AMA Did Patient Leave Against Medical Advice: No
[2017-12-04] MEDS: RALTEGRAVIR POTASSIUM 400 MG TAB PO SCH (09:01)
[2017-12-04] MEDS: PRENATAL VITAMINS W/ FOLIC ACID TABLET (FP) PO SCH (09:01)
[2017-12-04] MEDS: EMTRICITABINE 200MG/TENOFOVIR 300MG PO SCH (09:01)
[2017-12-04] MEDS: SERTRALINE HCL 50 MG TABLET (FP) PO SCH (09:02)
[2017-12-04] MEDS: NICOTINE 21 MG/24 HOURS TOPICAL PATCH TD SCH (09:02)
[2017-12-04 09:13] VITALS: BP 90/56; PULSE 118; TEMP 96.8
== END 2017-12-04 09:06 | disposition home or self-care (01) | DRG 773 ==
LOC: YASAS 10:41 → Y3N 14:06
PROC: HZ2ZZZZ Detoxification Services for Substance Abuse Treatment (ICD-10-PCS; principal; 2017-11-29)
DX: F11.23 Opioid dependence with withdrawal (principal); F10.230 Alcohol dependence with withdrawal, uncomplicated; F14.20 Cocaine dependence, uncomplicated; F17.213 Nicotine dependence, cigarettes, with withdrawal; F43.10 Post-traumatic stress disorder, unspecified; F31.9 Bipolar disorder, unspecified; B20 Human immunodeficiency virus [HIV] disease; G47.00 Insomnia, unspecified; B18.2 Chronic viral hepatitis C; G62.9 Polyneuropathy, unspecified; R01.1 Cardiac murmur, unspecified; R63.4 Abnormal weight loss; Z68.22 Body mass index [BMI] 22.0-22.9, adult; Z96.641 Presence of right artificial hip joint; Z87.81 Personal history of (healed) traumatic fracture
CPT/HCPCS: 36415; 80053; 81003; 85027; 86593; 93005; 93010

== ENCOUNTER 2018-08-27 11:05 | Inpatient (IN) | payer OTHER ==
[2018-08-27 13:32] VITALS: BMI 23.3
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
[2018-08-27] MEDS ORDERED: MAGNESIUM HYDROX 2400MG/30ML ORAL SUSPENSION 30 ML CUP PO PRN (14:20)
[2018-08-27] MEDS ORDERED: DICYCLOMINE HCL 10 MG CAPSULE PO PRN (14:20)
[2018-08-27] MEDS ORDERED: MELATONIN 5 MG TABLETS PO PRN (14:20)
[2018-08-27] MEDS ORDERED: IBUPROFEN 400 MG TABLET (FP) PO PRN (14:20)
[2018-08-27] MEDS ORDERED: ACETAMINOPHEN 325 MG TABLET (FP) PO PRN ×2 (14:20)
[2018-08-27] MEDS ORDERED: ONDANSETRON *ODT* 4 MG TABLET SL PRN (14:20)
[2018-08-27] MEDS ORDERED: chlordiazePOXIDE HCL 25 MG CAPSULE PO PRN (14:20)
[2018-08-27] MEDS ORDERED: MAG HYDROX/AL HYDROX/SIMETH 30 ML UNIT-DOSE CUP PO PRN (14:20)
[2018-08-27] MEDS ORDERED: hydrOXYzine PAMOATE 25 MG CAPSULE (FP) PO PRN (14:20)
[2018-08-27] MEDS ORDERED: MAGNESIUM CITRATE 300 ML BOTTLE PO PRN (14:20)
[2018-08-27] MEDS ORDERED: cloNIDine HCL 0.1 MG TABLET PO PRN (14:20)
[2018-08-27] MEDS ORDERED: METHOCARBAMOL 500 MG TABLET PO PRN (14:20)
[2018-08-27] MEDS ORDERED: MENTHOL/PHENOL 1 EACH UD MM PRN (14:20)
[2018-08-27] MEDS ORDERED: chlordiazePOXIDE HCL 25 MG CAPSULE PO ONE (15:15)
[2018-08-27 17:46] LABS: HEMATOCRIT 46.2 % (35.4-49); HEMOGLOBIN 15.2 GM/dL (11.7-16.9); MCH 28.1 pg (25.7-33.7); MCHC 32.8 g/dl (32.0-35.9); MEAN CELL VOLUME 85.6 fl (80-96); MEAN PLT VOLUME 7.7 fl (7.5-11.1); RDW 13.8 % (11.9-15.9); WHITE BLOOD COUNT 6.9 K/mm3 (4.0-10.0)
[2018-08-27] MEDS: chlordiazePOXIDE HCL 25 MG CAPSULE PO SCH ×2 (17:54→22:16)
[2018-08-27 17:59] LABS: ALBUMIN 4.2 g/dl (3.4-5.0); BILIRUBIN,TOTAL 0.8 mg/dL (0.2-1); BLOOD UREA NITROGEN 13.8 mg/dL (7-18); CALCIUM 9.3 mg/dL (8.5-10.1); CREATININE 1.1 mg/dL (0.55-1.3); POTASSIUM 4.6 mmol/L (3.5-5.1); TOT PROT 8.2 g/dl (6.4-8.2)
[2018-08-27 21:51] LABS: PLATELET COUNT 192 K/MM3 (134-434)
[2018-08-27] MEDS: THIAMINE HCL 100 MG TABLET (FP) PO SCH (22:16)
[2018-08-27] MEDS ORDERED: METHADONE HCL 10 MG TABLET (FOR DETOX USE ONLY) PO ONE (23:00)
[2018-08-28] MEDS: chlordiazePOXIDE HCL 25 MG CAPSULE PO SCH ×4 (05:38→22:17)
[2018-08-28] MEDS: DOLUTEGRAVIR SODIUM 50 MG TABLET (NON-FORMULARY) PO SCH (07:37)
[2018-08-28] MEDS: EMTRICITABINE 200MG/TENOFOVIR 300MG PO SCH (07:37)
[2018-08-28] MEDS ORDERED: METHADONE HCL 10 MG TABLET (FOR DETOX USE ONLY) PO ONE (10:00)
[2018-08-28] MEDS: PRENATAL VITAMINS W/ FOLIC ACID TABLET (FP) PO SCH (10:15)
[2018-08-28] MEDS: NICOTINE 21 MG/24 HOURS TOPICAL PATCH TD SCH (10:16)
[2018-08-28] MEDS: NICOTINE POLACRILEX 4 MG GUM BUC PRN (10:17)
--- NOTE | 2018-08-28 12:16 | PN ---
[facility] CIWA - CIWA Score Nausea/Vomitin-No Nausea/No Vomiting Muscle Tremors: 3 Anxiety: 3 Agitation: 3 Paroxysmal Sweats: 3 Orientation: 0-Oriented Tacttile Disturbances: 0-None Auditory Disturbances: 0-None Visual Disturbances: 0-None Headache: 0-None Present CIWA-Ar Total Score: 12 [facility] COWS - Scale Resting Pulse: 1= [place] 81-100 Sweatin= Chills/Flushing Restless Observation: 1= Difficult to Sit Still Pupil Size: 0= Normal to Room Light Bone or Joint Aches: 1= Mild Discomfort Runny Nose/ Eye Tearin= Nasal Congestion GI Upset > 30mins: 0= None Tremor Observation of Outstretched Hands: 2= Slight Tremor Visible Yawning Observation: 1= 1-2x During Session Anxiety or Irritability: 2=Irritable/Anxious Goose Flesh Skin: 0=Smooth Skin COWS Score: 10 [facility] Progress Note (SOAP) Subjective: sweats shakes chills interrupted sleep body aches anxiety Objective: 08/28/18 12:15 Vital Signs Temperature 97.1 F L 08/28/18 09:37 Pulse Rate 87 08/28/18 09:37 Respiratory Rate 18 08/28/18 09:37 Blood Pressure 112/84 08/28/18 09:37 O2 Sat by Pulse Oximetry (%) Laboratory Tests 08/27/18 08/27/18 08/27/18 13:00 13:00 13:00 WBC 6.9 RBC 5.40 Hgb 15.2 Hct 46.2 MCV 85.6 MCH 28.1 MCHC 32.8 RDW 13.8 Plt Count 192 MPV 7.7 Manual Slide Review Scanned Platelet Comment A Sodium 140 Potassium 4.6 Chloride 106 Carbon Dioxide 29 Anion Gap 5 L BUN 13.8 Creatinine 1.1 Est GFR (CKD-EPI)AfAm 88.36 Est GFR (CKD-EPI)NonAf 76.24 Random Glucose 94 Calcium 9.3 Total Bilirubin 0.8 AST 53 H ALT 68 H Alkaline Phosphatase 82 Total Protein 8.2 Albumin 4.2 RPR Titer Nonreactive labs noted aaox3 ambulating no acute distress Assessment: 08/28/18 12:16 withdrawal sx Plan: continue detox increase fluids
--- NOTE | 2018-08-28 15:10 | PN ---
[facility] Progress Note Note: Lizette Jones was called and spoke with Elpidio the pharmacist and he confirmed that pt is currently on truvada and tivicay last picked up on 08/19/18. Pt has no more refills and will need to meet with his PCP or ID doctor for check up and new rx.
--- NOTE | 2018-08-28 16:57 | EKG ---
Test Reason : Blood Pressure : / mmHG Vent. Rate : 076 BPM Atrial Rate : 076 BPM P-R Int : 164 ms QRS Dur : 088 ms QT Int : 372 ms P-R-T Axes : 069 038 042 degrees QTc Int : 418 ms NORMAL SINUS RHYTHM NORMAL ECG WHEN COMPARED WITH ECG OF 29-NOV-2017 16:58, VENT. RATE HAS INCREASED BY 31 BPM Confirmed by PEDRO CROWE MD ([id number]) on 08/28/2018 4:57:18 PM Referred By: Confirmed By:PEDRO CROWE MD
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
[2018-08-28] MEDS: THIAMINE HCL 100 MG TABLET (FP) PO SCH (22:17)
[2018-08-28] MEDS: QUEtiapine FUMARATE 200 MG TABLET PO SCH (22:18)
[2018-08-29] MEDS: chlordiazePOXIDE HCL 25 MG CAPSULE PO SCH ×2 (05:51→10:03)
[2018-08-29] MEDS: NICOTINE POLACRILEX 4 MG GUM BUC PRN ×2 (05:52→10:05)
[2018-08-29] MEDS: EMTRICITABINE 200MG/TENOFOVIR 300MG PO SCH (07:40)
[2018-08-29] MEDS: DOLUTEGRAVIR SODIUM 50 MG TABLET (NON-FORMULARY) PO SCH (07:40)
[2018-08-29] MEDS ORDERED: METHADONE HCL 10 MG TABLET (FOR DETOX USE ONLY) PO ONE (10:00)
[2018-08-29] MEDS: PRENATAL VITAMINS W/ FOLIC ACID TABLET (FP) PO SCH (10:02)
[2018-08-29] MEDS: SERTRALINE HCL 50 MG TABLET (FP) PO SCH (10:02)
[2018-08-29] MEDS: NICOTINE 21 MG/24 HOURS TOPICAL PATCH TD SCH (10:15)
--- NOTE | 2018-08-29 14:15 | PN ---
[facility] CIWA - CIWA Score Nausea/Vomitin-Mild Nausea/No Vomiting Muscle Tremors: 2 Anxiety: 3 Agitation: 2 Paroxysmal Sweats: 2 Orientation: 0-Oriented Tacttile Disturbances: 0-None Auditory Disturbances: 0-None Visual Disturbances: 0-None Headache: 0-None Present CIWA-Ar Total Score: 10 S COWS - Scale Resting Pulse: 2= [place] 101-120 Sweatin= Chills/Flushing Restless Observation: 3= Extraneous Movement Pupil Size: 0= Normal to Room Light Bone or Joint Aches: 1= Mild Discomfort Runny Nose/ Eye Tearin= None GI Upset > 30mins: 1= Stomach Cramp Tremor Observation of Outstretched Hands: 2= Slight Tremor Visible Yawning Observation: 0= None Anxiety or Irritability: 1=Feels Anxious/Irritable Goose Flesh Skin: 0=Smooth Skin COWS Score: 11 [facility] Progress Note (SOAP) Subjective: Nausea, chills, sweating, anxious Objective: 08/29/18 14:11 Last Vital Signs Temp Pulse Resp BP Pulse Ox 98.2 F 104 H 16 109/69 08/29/18 13:56 08/29/18 13:56 08/29/18 13:56 08/29/18 13:56 Mild tachycardia noted: most likely r/t withdrawal Laboratory Tests 08/27/18 08/27/18 08/27/18 13:00 13:00 13:00 WBC 6.9 RBC 5.40 Hgb 15.2 Hct 46.2 MCV 85.6 MCH 28.1 MCHC 32.8 RDW 13.8 Plt Count 192 MPV 7.7 Manual Slide Review Scanned Platelet Comment A Sodium 140 Potassium 4.6 Chloride 106 Carbon Dioxide 29 Anion Gap 5 L BUN 13.8 Creatinine 1.1 Est GFR (CKD-EPI)AfAm 88.36 Est GFR (CKD-EPI)NonAf 76.24 Random Glucose 94 Calcium 9.3 Total Bilirubin 0.8 AST 53 H ALT 68 H Alkaline Phosphatase 82 Total Protein 8.2 Albumin 4.2 RPR Titer Nonreactive Labs reviewed Assessment: 08/29/18 14:13 Withdrawal symptoms Plan: Continue detox Encouraged PO water hydration
[2018-08-29] MEDS: chlordiazePOXIDE HCL 10 MG CAPSULE PO SCH ×2 (17:10→22:02)
[2018-08-29] MEDS: THIAMINE HCL 100 MG TABLET (FP) PO SCH (22:02)
[2018-08-29] MEDS: QUEtiapine FUMARATE 200 MG TABLET PO SCH (22:02)
[2018-08-30] MEDS: chlordiazePOXIDE HCL 10 MG CAPSULE PO SCH ×3 (05:59→17:55)
--- NOTE | 2018-08-30 09:39 | PN ---
[facility] CIWA - CIWA Score Nausea/Vomitin-No Nausea/No Vomiting Muscle Tremors: 3 Anxiety: 2 Agitation: 2 Paroxysmal Sweats: 1-Minimal Palms Moist Orientation: 0-Oriented Tacttile Disturbances: 0-None Auditory Disturbances: 0-None Visual Disturbances: 0-None Headache: 0-None Present CIWA-Ar Total Score: 8 [facility] COWS - Scale Resting Pulse: 0= [place] 80 or Below Sweatin= Chills/Flushing Restless Observation: 0= Sits Still Pupil Size: 0= Normal to Room Light Bone or Joint Aches: 1= Mild Discomfort Runny Nose/ Eye Tearin= None GI Upset > 30mins: 0= None Tremor Observation of Outstretched Hands: 1= Tremor [place], Not Seen Yawning Observation: 1= 1-2x During Session Anxiety or Irritability: 1=Feels Anxious/Irritable Goose Flesh Skin: 0=Smooth Skin COWS Score: 5 [facility] Progress Note (SOAP) Subjective: sweats interrupted sleep tired Objective: 08/30/18 09:38 Vital Signs Temperature 98.2 F 08/30/18 09:16 Pulse Rate 92 H 08/30/18 09:16 Respiratory Rate 18 08/30/18 09:16 Blood Pressure 112/74 08/30/18 09:16 O2 Sat by Pulse Oximetry (%) aaox3 ambulating no acute distress Assessment: 08/30/18 09:38 mild withdrawal sx Plan: continue detox increase fluids
[2018-08-30] MEDS ORDERED: METHADONE HCL 10 MG TABLET (FOR DETOX USE ONLY) PO ONE (10:00)
[2018-08-30] MEDS: PRENATAL VITAMINS W/ FOLIC ACID TABLET (FP) PO SCH (10:09)
[2018-08-30] MEDS: SERTRALINE HCL 50 MG TABLET (FP) PO SCH (10:09)
[2018-08-30] MEDS: DOLUTEGRAVIR SODIUM 50 MG TABLET (NON-FORMULARY) PO SCH (10:10)
[2018-08-30] MEDS: EMTRICITABINE 200MG/TENOFOVIR 300MG PO SCH (10:10)
[2018-08-30] MEDS: NICOTINE 21 MG/24 HOURS TOPICAL PATCH TD SCH (10:11)
[2018-08-30] MEDS: NICOTINE POLACRILEX 4 MG GUM BUC PRN (10:11)
[2018-08-30] MEDS: QUEtiapine FUMARATE 200 MG TABLET PO SCH (22:20)
[2018-08-30] MEDS: THIAMINE HCL 100 MG TABLET (FP) PO SCH (22:21)
[2018-08-31] MEDS: chlordiazePOXIDE HCL 10 MG CAPSULE PO SCH (05:16)
[2018-08-31] MEDS: NICOTINE POLACRILEX 4 MG GUM BUC PRN (05:18)
[2018-08-31] MEDS ORDERED: METHADONE HCL 5 MG TABLET (FOR DETOX USE ONLY) PO ONE (06:00)
[2018-08-31 06:28] VITALS: TEMP 97.9
[2018-08-31] MEDS: EMTRICITABINE 200MG/TENOFOVIR 300MG PO SCH (07:17)
[2018-08-31] MEDS: DOLUTEGRAVIR SODIUM 50 MG TABLET (NON-FORMULARY) PO SCH (07:17)
--- NOTE | 2018-08-31 08:59 | DS ---
[facility] Detox Discharge Summary Admission Date: 08/27/18 Discharge Date: 08/31/18 - History Present History: Alcohol Dependence, Cannabis Dependence, Cocaine Dependence - Physical Exam Results Vital Signs: Vital Signs Temperature 97.9 F 08/31/18 06:00 Pulse Rate 83 08/31/18 06:00 Respiratory Rate 18 08/31/18 06:00 Blood Pressure 116/64 08/31/18 06:00 O2 Sat by Pulse Oximetry (%) - Treatment Hospital Course: Detox Protocol Followed, Detoxed Safely, Responded well, Discharged Condition Good, Rehab Referral Accepted - Medication Discharge Medications: Ambulatory Orders Quetiapine Fumarate [Seroquel -] 200 mg PO HS #30 tab 12/02/17 Sertraline HCl [Zoloft] 100 mg PO DAILY #30 tablet 12/02/17 Emtricitabine/Tenofovir [Truvada -] 1 tab PO DAILY #30 tablet 12/04/17 Dolutegravir Sodium [Tivicay] 25 mg PO DAILY 08/27/18 Quetiapine Fumarate [Seroquel -] 200 mg PO HS #30 tab 08/30/18 Quetiapine Fumarate [Seroquel] 100 mg PO DAILY #30 tablet 08/30/18 - Diagnosis (1) Alcohol dependence with uncomplicated withdrawal Current Visit: Yes Status: Chronic (2) Cocaine dependence Current Visit: Yes Status: Chronic Qualifiers: Substance use status: uncomplicated Qualified Code(s): F14.20 - Cocaine dependence, uncomplicated (3) Insomnia Current Visit: Yes Status: Chronic Qualifiers: Insomnia type: primary Qualified Code(s): F51.01 - Primary insomnia (4) Nicotine dependence Current Visit: Yes Status: Chronic Qualifiers: Nicotine product type: cigarettes Substance use status: uncomplicated Qualified Code(s): F17.210 - Nicotine dependence, cigarettes, uncomplicated (5) Opioid dependence with withdrawal Current Visit: Yes Status: Acute (6) Acquired immune deficiency syndrome (AIDS) Current Visit: No Status: Chronic (7) Bipolar I disorder Current Visit: No Status: Chronic (8) Bipolar disorder Current Visit: No Status: Chronic (9) Hepatitis C Current Visit: No Status: Chronic Qualifiers: Viral hepatitis chronicity: chronic Hepatic coma status: without hepatic coma Qualified Code(s): B18.2 - Chronic viral hepatitis C (10) Neuropathy Current Visit: No Status: Chronic (11) PTSD (post-traumatic stress disorder) Current Visit: Yes Status: Chronic (12) Right femoral fracture Current Visit: No Status: Chronic Qualifiers: Encounter type: subsequent encounter Fracture type: closed - AMA Did Patient Leave Against Medical Advice: No (referred to [facility] )
[2018-08-31 10:01] VITALS: BP 103/59; PULSE 87
== END 2018-08-31 09:23 | disposition home or self-care (01) | DRG 773 ==
LOC: YASAS 11:05 → Y6N 15:07
PROVIDERS: ADMIT Surgery; ATTEND Surgery
PROC: HZ2ZZZZ Detoxification Services for Substance Abuse Treatment (ICD-10-PCS; principal; 2018-08-27)
DX: F11.23 Opioid dependence with withdrawal (principal); F10.230 Alcohol dependence with withdrawal, uncomplicated; F14.20 Cocaine dependence, uncomplicated; F17.210 Nicotine dependence, cigarettes, uncomplicated; F43.10 Post-traumatic stress disorder, unspecified; F31.9 Bipolar disorder, unspecified; F51.05 Insomnia due to other mental disorder; B20 Human immunodeficiency virus [HIV] disease; G62.9 Polyneuropathy, unspecified
CPT/HCPCS: 36415; 80053; 85027; 86593; 93005; 93010

== ENCOUNTER 2019-01-22 12:24 | Inpatient (IN) | payer OTHER ==
[2019-01-22 15:26] VITALS: BMI 24.9
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
[2019-01-22] MEDS ORDERED: MAG HYDROX/AL HYDROX/SIMETH 30 ML UNIT-DOSE CUP PO PRN (19:56)
[2019-01-22] MEDS ORDERED: MAGNESIUM HYDROX 2400MG/30ML ORAL SUSPENSION 30 ML CUP PO PRN (19:56)
[2019-01-22] MEDS ORDERED: METHOCARBAMOL 500 MG TABLET PO PRN (19:56)
[2019-01-22] MEDS ORDERED: BISMUTH SUBSALICYLATE 524 MG/30 ML UD PO PRN (19:56)
[2019-01-22] MEDS ORDERED: MAGNESIUM CITRATE 300 ML BOTTLE PO PRN (19:56)
[2019-01-22] MEDS ORDERED: MENTHOL/PHENOL 1 EACH UD MM PRN (19:56)
[2019-01-22] MEDS ORDERED: ACETAMINOPHEN 325 MG TABLET (FP) PO PRN ×2 (19:56)
[2019-01-22] MEDS ORDERED: IBUPROFEN 400 MG TABLET (FP) PO PRN (19:56)
[2019-01-22] MEDS ORDERED: chlordiazePOXIDE HCL 25 MG CAPSULE PO PRN (20:00)
[2019-01-22] MEDS: THIAMINE HCL 100 MG TABLET (FP) PO SCH (21:14)
[2019-01-22] MEDS: DOCUSATE SODIUM 100 MG CAPSULE (FP) PO SCH (21:14)
[2019-01-22] MEDS ORDERED: METHADONE HCL 10 MG TABLET (FOR DETOX USE ONLY) ONE (21:20)
[2019-01-22] MEDS ORDERED: METHADONE HCL 5 MG TABLET (FOR DETOX USE ONLY) PO ONE (22:00)
[2019-01-22] MEDS: chlordiazePOXIDE HCL 25 MG CAPSULE PO SCH (22:40)
[2019-01-23] MEDS: chlordiazePOXIDE HCL 25 MG CAPSULE PO SCH ×4 (05:38→22:26)
[2019-01-23] MEDS: DOCUSATE SODIUM 100 MG CAPSULE (FP) PO SCH ×3 (06:54→22:27)
[2019-01-23 09:33] LABS: HEMATOCRIT 37.6 % (35.4-49); HEMOGLOBIN 12.4 GM/dL (11.7-16.9); MCH 27.6 pg (25.7-33.7); MCHC 32.8 g/dl (32.0-35.9); MEAN PLT VOLUME 7.4 fl (7.5-11.1); PLATELET COUNT 155 K/MM3 (134-434); RBC 4.48 M/mm3 (4.00-5.60); WHITE BLOOD COUNT 4.7 K/mm3 (4.0-10.0)
[2019-01-23 09:58] LABS: ALBUMIN 3.1 g/dl (3.4-5.0); BILIRUBIN,TOTAL 0.6 mg/dL (0.2-1); BLOOD UREA NITROGEN 18.5 mg/dL (7-18); CALCIUM 8.1 mg/dL (8.5-10.1); CREATININE 1.1 mg/dL (0.55-1.3); TOT PROT 6.3 g/dl (6.4-8.2)
[2019-01-23] MEDS ORDERED: METHADONE HCL 10 MG TABLET (FOR DETOX USE ONLY) PO ONE (10:00)
[2019-01-23] MEDS: PRENATAL VITAMINS W/ FOLIC ACID TABLET (FP) PO SCH (10:48)
[2019-01-23] MEDS: NICOTINE 14 MG/24 HOURS TOPICAL PATCH TD SCH (10:50)
[2019-01-23] MEDS: NICOTINE POLACRILEX 2 MG GUM BUC PRN (10:50)
[2019-01-23] MEDS ORDERED: METHADONE PO ONE (11:00)
[2019-01-23] MEDS ORDERED: METHADONE HCL 10 MG TABLET (FOR DETOX USE ONLY) ONE ×2 (11:10→11:19)
[2019-01-23] MEDS ORDERED: METHADONE HCL 5 MG TABLET ONE (11:20)
[2019-01-23] MEDS ORDERED: METHADONE (DETOX) 20 MG, METHADONE (DETOX) 5 MG PO ONE (11:30)
--- NOTE | 2019-01-23 16:14 | PN ---
[facility] CIWA - CIWA Score Nausea/Vomitin-Mild Nausea/No Vomiting Muscle Tremors: 4-Moderate,w/Arms Extend Anxiety: 3 Agitation: 3 Paroxysmal Sweats: 3 Orientation: 0-Oriented Tacttile Disturbances: 0-None Auditory Disturbances: 0-None Visual Disturbances: 0-None Headache: 0-None Present CIWA-Ar Total Score: 14 S COWS - Scale Resting Pulse: 1= [place] 81-100 Sweatin= Chills/Flushing Restless Observation: 3= Extraneous Movement Pupil Size: 0= Normal to Room Light Bone or Joint Aches: 1= Mild Discomfort Runny Nose/ Eye Tearin= Nasal Congestion GI Upset > 30mins: 2= Nausea/Diarrhea Tremor Observation of Outstretched Hands: 2= Slight Tremor Visible Yawning Observation: 0= None Anxiety or Irritability: 2=Irritable/Anxious Goose Flesh Skin: 0=Smooth Skin COWS Score: 13 S Progress Note (SOAP) Subjective: Stomachache, stuffy nose, light bothering eyes, diarrhea Objective: 01/23/19 16:08 Last Vital Signs Temp Pulse Resp BP Pulse Ox 98.1 F 90 18 111/68 01/23/19 14:01 01/23/19 14:01 01/23/19 14:01 01/23/19 14:01 Laboratory Tests 01/23/19 01/23/19 07:50 07:50 WBC 4.7 RBC 4.48 Hgb 12.4 Hct 37.6 D MCV 84.0 MCH 27.6 MCHC 32.8 RDW 14.0 Plt Count 155 MPV 7.4 L Sodium 142 Potassium 4.0 Chloride 107 Carbon Dioxide 33 H Anion Gap 2 L BUN 18.5 H Creatinine 1.1 Est GFR (CKD-EPI)AfAm 87.74 Est GFR (CKD-EPI)NonAf 75.70 Random Glucose 102 Calcium 8.1 L Total Bilirubin 0.6 AST 85 H ALT 50 Alkaline Phosphatase 54 Total Protein 6.3 L Albumin 3.1 L Labs reviewed: calcium 8.1, AST 85 Assessment: 01/23/19 16:10 Withdrawal sxs Noted with hypocalcemia and elevated AST Plan: Continue detox Encouraged PO water intake Hypocalcemia: start calcium carbonate 650mg PO bid x 3 days, repeat serum calcium level on 01/26 Elavated AST: most likely from substance use, repeat AST on 01/26
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
[2019-01-23] MEDS: QUEtiapine FUMARATE 200 MG TABLET PO SCH (22:27)
[2019-01-23] MEDS: CALCIUM CARBONATE 650 MG TABLET PO SCH (22:27)
[2019-01-23] MEDS: THIAMINE HCL 100 MG TABLET (FP) PO SCH (22:30)
[2019-01-24] MEDS: chlordiazePOXIDE HCL 25 MG CAPSULE PO SCH ×4 (05:54→22:14)
[2019-01-24] MEDS: DOCUSATE SODIUM 100 MG CAPSULE (FP) PO SCH ×3 (05:54→22:14)
[2019-01-24] MEDS ORDERED: METHADONE HCL 10 MG TABLET (FOR DETOX USE ONLY) PO ONE (10:00)
[2019-01-24] MEDS: PRENATAL VITAMINS W/ FOLIC ACID TABLET (FP) PO SCH (10:41)
[2019-01-24] MEDS: NICOTINE 14 MG/24 HOURS TOPICAL PATCH TD SCH (10:41)
[2019-01-24] MEDS: SERTRALINE HCL 50 MG TABLET (FP) PO SCH (10:41)
[2019-01-24] MEDS: CALCIUM CARBONATE 650 MG TABLET PO SCH ×2 (10:41→22:14)
--- NOTE | 2019-01-24 12:05 | PN ---
[facility] CIWA - CIWA Score Nausea/Vomitin-Mild Nausea/No Vomiting Muscle Tremors: 2 Anxiety: 2 Agitation: 2 Paroxysmal Sweats: No Perspiration Orientation: 0-Oriented Tacttile Disturbances: 1-Very Mild Itch/Numbness Auditory Disturbances: 0-None Visual Disturbances: 0-None Headache: 2-Mild CIWA-Ar Total Score: 10 BHS COWS - Scale Resting Pulse: 1= [place] 81-100 Sweatin= No chills or Flushing Restless Observation: 1= Difficult to Sit Still Pupil Size: 1= Pupils >than Normal Bone or Joint Aches: 1= Mild Discomfort Runny Nose/ Eye Tearin= Nasal Congestion GI Upset > 30mins: 1= Stomach Cramp Tremor Observation of Outstretched Hands: 1= Tremor [place], Not Seen Yawning Observation: 1= 1-2x During Session Anxiety or Irritability: 2=Irritable/Anxious Goose Flesh Skin: 0=Smooth Skin COWS Score: 10 S Progress Note (SOAP) Subjective: alert,irritable,anxious,interrupted sleep,pain in the body and back Objective: 01/24/19 12:03 Vital Signs Temperature 97.2 F L 01/24/19 09:20 Pulse Rate 92 H 01/24/19 09:20 Respiratory Rate 20 01/24/19 09:20 Blood Pressure 99/62 01/24/19 09:20 O2 Sat by Pulse Oximetry (%) 01/24/19 12:03 Laboratory Last Values WBC 4.7 K/mm3 (4.0-10.0) 01/23/19 07:50 RBC 4.48 M/mm3 (4.00-5.60) 01/23/19 07:50 Hgb 12.4 GM/dL (11.7-16.9) 01/23/19 07:50 Hct 37.6 % (35.4-49) D 01/23/19 07:50 MCV 84.0 fl (80-96) 01/23/19 07:50 MCH 27.6 pg (25.7-33.7) 01/23/19 07:50 MCHC 32.8 g/dl (32.0-35.9) 01/23/19 07:50 RDW 14.0 % (11.9-15.9) 01/23/19 07:50 Plt Count 155 K/MM3 (134-434) 01/23/19 07:50 MPV 7.4 fl (7.5-11.1) L 01/23/19 07:50 Sodium 142 mmol/L (136-145) 01/23/19 07:50 Potassium 4.0 mmol/L (3.5-5.1) 01/23/19 07:50 Chloride 107 mmol/L (98-107) 01/23/19 07:50 Carbon Dioxide 33 mmol/L (21-32) H 01/23/19 07:50 Anion Gap 2 MMOL/L (8-16) L 01/23/19 07:50 BUN 18.5 mg/dL (7-18) H 01/23/19 07:50 Creatinine 1.1 mg/dL (0.55-1.3) 01/23/19 07:50 Est GFR (CKD-EPI)AfAm 87.74 01/23/19 07:50 Est GFR (CKD-EPI)NonAf 75.70 01/23/19 07:50 Random Glucose 102 mg/dL (74-106) 01/23/19 07:50 Calcium 8.1 mg/dL (8.5-10.1) L 01/23/19 07:50 Total Bilirubin 0.6 mg/dL (0.2-1) 01/23/19 07:50 AST 85 U/L (15-37) H 01/23/19 07:50 ALT 50 U/L (13-61) 01/23/19 07:50 Alkaline Phosphatase 54 U/L (45-117) 01/23/19 07:50 Total Protein 6.3 g/dl (6.4-8.2) L 01/23/19 07:50 Albumin 3.1 g/dl (3.4-5.0) L 01/23/19 07:50 Assessment: 01/24/19 12:04 withdrawal symptom Plan: continue detox methadone and librium regimen
[2019-01-24] MEDS: QUEtiapine FUMARATE 200 MG TABLET PO SCH (22:14)
[2019-01-24] MEDS: THIAMINE HCL 100 MG TABLET (FP) PO SCH (22:14)
[2019-01-25] MEDS ORDERED: chlordiazePOXIDE HCL 10 MG CAPSULE PO PRN
[2019-01-25] MEDS: DOCUSATE SODIUM 100 MG CAPSULE (FP) PO SCH ×3 (05:51→22:19)
[2019-01-25] MEDS: chlordiazePOXIDE HCL 10 MG CAPSULE PO SCH ×4 (05:51→22:18)
[2019-01-25] MEDS ORDERED: METHADONE HCL 5 MG TABLET (FOR DETOX USE ONLY) ONE (09:22)
[2019-01-25] MEDS ORDERED: METHADONE HCL 10 MG TABLET (FOR DETOX USE ONLY) ONE (09:23)
[2019-01-25] MEDS ORDERED: METHADONE (DETOX) 10 MG, METHADONE (DETOX) 5 MG PO ONE (10:00)
[2019-01-25] MEDS: CALCIUM CARBONATE 650 MG TABLET PO SCH ×2 (11:04→22:19)
[2019-01-25] MEDS: PRENATAL VITAMINS W/ FOLIC ACID TABLET (FP) PO SCH (11:04)
[2019-01-25] MEDS: NICOTINE 14 MG/24 HOURS TOPICAL PATCH TD SCH (11:05)
[2019-01-25] MEDS: SERTRALINE HCL 50 MG TABLET (FP) PO SCH (11:05)
--- NOTE | 2019-01-25 12:58 | PN ---
[facility] CIWA - CIWA Score Nausea/Vomitin-Mild Nausea/No Vomiting Muscle Tremors: 1-None Visible, but [place] Anxiety: 2 Agitation: 2 Paroxysmal Sweats: No Perspiration Orientation: 0-Oriented Tacttile Disturbances: 1-Very Mild Itch/Numbness Auditory Disturbances: 0-None Visual Disturbances: 0-None Headache: 1-Very Mild CIWA-Ar Total Score: 8 BHS COWS - Scale Resting Pulse: 1= [place] 81-100 Sweatin= No chills or Flushing Restless Observation: 1= Difficult to Sit Still Pupil Size: 1= Pupils >than Normal Bone or Joint Aches: 1= Mild Discomfort Runny Nose/ Eye Tearin= Nasal Congestion GI Upset > 30mins: 1= Stomach Cramp Tremor Observation of Outstretched Hands: 1= Tremor [place], Not Seen Yawning Observation: 0= None Anxiety or Irritability: 2=Irritable/Anxious Goose Flesh Skin: 0=Smooth Skin COWS Score: 9 [facility] Progress Note (SOAP) Subjective: alert,irritable,anxious,interrupted sleep,painin the body and back Objective: 01/25/19 12:57 Vital Signs Temperature 97.9 F 01/25/19 09:24 Pulse Rate 84 01/25/19 09:24 Respiratory Rate 18 01/25/19 09:24 Blood Pressure 103/66 01/25/19 09:24 O2 Sat by Pulse Oximetry (%) Assessment: 01/25/19 12:58 withdrawal symptom Plan: continue detox methadone and librium regimen
[2019-01-25] MEDS: NICOTINE POLACRILEX 2 MG GUM BUC PRN (13:32)
[2019-01-25] MEDS: QUEtiapine FUMARATE 200 MG TABLET PO SCH (22:18)
[2019-01-25] MEDS: THIAMINE HCL 100 MG TABLET (FP) PO SCH (22:19)
[2019-01-25] MEDS: MELATONIN 5 MG TABLETS PO PRN (22:19)
[2019-01-26] MEDS: DOCUSATE SODIUM 100 MG CAPSULE (FP) PO SCH ×3 (05:33→22:24)
[2019-01-26] MEDS: chlordiazePOXIDE HCL 10 MG CAPSULE PO SCH ×2 (05:33→17:18)
[2019-01-26] MEDS ORDERED: METHADONE HCL 10 MG TABLET (FOR DETOX USE ONLY) PO ONE (10:00)
[2019-01-26] MEDS: PRENATAL VITAMINS W/ FOLIC ACID TABLET (FP) PO SCH (10:16)
[2019-01-26] MEDS: SERTRALINE HCL 50 MG TABLET (FP) PO SCH (10:17)
[2019-01-26] MEDS: NICOTINE 14 MG/24 HOURS TOPICAL PATCH TD SCH (10:18)
[2019-01-26] MEDS: NICOTINE POLACRILEX 2 MG GUM BUC PRN (10:18)
[2019-01-26] MEDS: CALCIUM CARBONATE 650 MG TABLET PO SCH (10:18)
[2019-01-26 11:40] LABS: CALCIUM 9.2 mg/dL (8.5-10.1)
--- NOTE | 2019-01-26 14:09 | PN ---
[facility] CIWA - CIWA Score Nausea/Vomitin-No Nausea/No Vomiting Muscle Tremors: 1-None Visible, but [place] Anxiety: 2 Agitation: 2 Paroxysmal Sweats: No Perspiration Orientation: 0-Oriented Tacttile Disturbances: 0-None Auditory Disturbances: 0-None Visual Disturbances: 0-None Headache: 1-Very Mild CIWA-Ar Total Score: 6 BHS COWS - Scale Resting Pulse: 1= [place] 81-100 Sweatin= No chills or Flushing Restless Observation: 1= Difficult to Sit Still Pupil Size: 0= Normal to Room Light Bone or Joint Aches: 1= Mild Discomfort Runny Nose/ Eye Tearin= Nasal Congestion GI Upset > 30mins: 1= Stomach Cramp Tremor Observation of Outstretched Hands: 1= Tremor [place], Not Seen Yawning Observation: 1= 1-2x During Session Anxiety or Irritability: 1=Feels Anxious/Irritable Goose Flesh Skin: 0=Smooth Skin COWS Score: 8 [facility] Progress Note (SOAP) Subjective: alert,irritable,anxious,pain in the body,interrupted sleep Objective: 01/26/19 14:08 Vital Signs Temperature 96.8 F L 01/26/19 13:42 Pulse Rate 82 01/26/19 13:42 Respiratory Rate 16 01/26/19 13:42 Blood Pressure 134/70 01/26/19 13:42 O2 Sat by Pulse Oximetry (%) Assessment: 01/26/19 14:09 withdrawal symptom Plan: continue detox,discharge in am
[2019-01-26 21:22] VITALS: BP 119/71; PULSE 77; TEMP 98.1
[2019-01-26] MEDS: QUEtiapine FUMARATE 200 MG TABLET PO SCH (22:23)
[2019-01-26] MEDS: MELATONIN 5 MG TABLETS PO PRN (22:24)
[2019-01-26] MEDS: THIAMINE HCL 100 MG TABLET (FP) PO SCH (22:24)
[2019-01-27] MEDS ORDERED: chlordiazePOXIDE HCL 10 MG CAPSULE PO ONE (05:00)
[2019-01-27] MEDS: DOCUSATE SODIUM 100 MG CAPSULE (FP) PO SCH (05:52)
[2019-01-27] MEDS ORDERED: METHADONE HCL 5 MG TABLET (FOR DETOX USE ONLY) PO ONE (06:00)
--- NOTE | 2019-01-27 09:26 | DS ---
[facility] Detox Discharge Summary Admission Date: 01/22/19 Discharge Date: 01/27/19 - History Present History: Alcohol Dependence, Cannabis Dependence, Opioid Dependence - Physical Exam Results Vital Signs: Vital Signs Temperature 98.1 F 01/26/19 21:22 Pulse Rate 77 01/26/19 21:22 Respiratory Rate 18 01/27/19 03:30 Blood Pressure 119/71 01/26/19 21:22 O2 Sat by Pulse Oximetry (%) - Treatment Hospital Course: Detox Protocol Followed, Detoxed Safely, Responded well, Discharged Condition Good, Rehab Referral Accepted Patient has Accepted a Rehab Referral to: pt referred to [facility] rehab - Medication Discharge Medications: Ambulatory Orders Emtricitabine/Tenofovir [Truvada -] 1 tab PO DAILY #30 tablet 12/04/17 Dolutegravir Sodium [Tivicay] 25 mg PO DAILY 08/27/18 Quetiapine Fumarate [Seroquel -] 200 mg PO HS #30 tab 08/30/18 Gabapentin 300 mg PO TID 01/22/19 Sertraline HCl [Zoloft] 100 mg PO DAILY 01/22/19 - Diagnosis (1) Cannabis dependence Current Visit: Yes Status: Chronic (2) History of fracture of right hip Current Visit: Yes Status: Acute (3) Substance-induced sleep disorder Current Visit: Yes Status: Acute (4) History of hepatitis C Current Visit: Yes Status: Chronic (5) Alcohol dependence with uncomplicated withdrawal Current Visit: Yes Status: Chronic (6) Opioid dependence with withdrawal Current Visit: Yes Status: Chronic (7) Acquired immune deficiency syndrome (AIDS) Current Visit: No Status: Chronic (8) Bipolar I disorder Current Visit: No Status: Chronic (9) Bipolar disorder Current Visit: No Status: Chronic (10) Hepatitis C Current Visit: Yes Status: Chronic Qualifiers: Viral hepatitis chronicity: chronic Hepatic coma status: without hepatic coma Qualified Code(s): B18.2 - Chronic viral hepatitis C (11) Neuropathy Current Visit: No Status: Chronic (12) Nicotine dependence Current Visit: Yes Status: Chronic Qualifiers: Nicotine product type: cigarettes Substance use status: uncomplicated Qualified Code(s): F17.210 - Nicotine dependence, cigarettes, uncomplicated (13) PTSD (post-traumatic stress disorder) Current Visit: No Status: Chronic (14) Right femoral fracture Current Visit: No Status: Resolved Qualifiers: Encounter type: subsequent encounter Fracture type: closed - AMA Did Patient Leave Against Medical Advice: No
== END 2019-01-27 09:16 | disposition home or self-care (01) | DRG 773 ==
LOC: YASAS 12:24 → UNDOADMIN 20:26 → Y6N 20:26 → UNDODISIN 01-27 09:16
PROVIDERS: ADMIT Allergy & Immunology; ATTEND Allergy & Immunology
PROC: HZ2ZZZZ Detoxification Services for Substance Abuse Treatment (ICD-10-PCS; principal; 2019-01-22)
DX: F10.230 Alcohol dependence with withdrawal, uncomplicated (principal); F11.23 Opioid dependence with withdrawal; F14.20 Cocaine dependence, uncomplicated; F12.20 Cannabis dependence, uncomplicated; F17.210 Nicotine dependence, cigarettes, uncomplicated; F90.9 Attention-deficit hyperactivity disorder, unspecified type; F31.9 Bipolar disorder, unspecified; F19.282 Other psychoactive substance dependence with psychoactive substance-induced sleep disorder; F43.10 Post-traumatic stress disorder, unspecified; B20 Human immunodeficiency virus [HIV] disease; E83.51 Hypocalcemia; R79.89 Other specified abnormal findings of blood chemistry; H55.00 Unspecified nystagmus; Z86.19 Personal history of other infectious and parasitic diseases; Z87.81 Personal history of (healed) traumatic fracture
CPT/HCPCS: 36415; 80053; 82310; 84450; 85027

== ENCOUNTER 2019-11-11 17:20 | Inpatient (IN) | payer OTHER ==
[2019-11-11 19:20] VITALS: BMI 23.0
[2019-11-11] MEDS ORDERED: PNEUMOC 13-VAL CONJ-DIP CRM/PF 0.5 ML DISP.SYRIN IM ONE (19:56)
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
[2019-11-11] MEDS ORDERED: LORazepam 1 MG TABLET PO PRN (20:57)
[2019-11-11] MEDS ORDERED: METHADONE HCL 10 MG TABLET (FOR DETOX USE ONLY) PO ONE (20:57)
[2019-11-11] MEDS ORDERED: ONDANSETRON *ODT* 4 MG TABLET SL PRN (20:57)
[2019-11-11] MEDS ORDERED: MAG HYDROX/AL HYDROX/SIMETH 30 ML UNIT-DOSE CUP PO PRN (20:57)
[2019-11-11] MEDS ORDERED: MENTHOL/PHENOL 1 EACH UD MM PRN (20:57)
[2019-11-11] MEDS ORDERED: IBUPROFEN 400 MG TABLET (FP) PO PRN (20:57)
[2019-11-11] MEDS ORDERED: MAGNESIUM HYDROX 2400MG/30ML ORAL SUSPENSION 30 ML CUP PO PRN (20:57)
[2019-11-11] MEDS ORDERED: hydrOXYzine PAMOATE 25 MG CAPSULE (FP) PO PRN (20:57)
[2019-11-11] MEDS ORDERED: BISMUTH SUBSALICYLATE 524 MG/30 ML UD PO PRN (20:57)
[2019-11-11] MEDS ORDERED: ACETAMINOPHEN 325 MG TABLET (FP) PO PRN ×2 (20:57)
[2019-11-11] MEDS ORDERED: METHOCARBAMOL 500 MG TABLET PO PRN (20:57)
[2019-11-11] MEDS ORDERED: MAGNESIUM CITRATE 300 ML BOTTLE PO PRN (20:57)
[2019-11-11] MEDS ORDERED: cloNIDine HCL 0.1 MG TABLET PO PRN (20:57)
[2019-11-11] MEDS ORDERED: NICOTINE POLACRILEX 2 MG GUM BUC PRN (20:57)
--- NOTE | 2019-11-11 22:20 | PN ---
S Progress Note Note: EKG w/ septal infarct. States had a heart attack 5 months ago and had 2 cardiac stents put in. States not on blood thinners, just baby aspirin. Denies CP/SOB. EKG reviewed w/ patient and encouraged continued f/u upon discharge and compliance w/ prescribed medications. Plan: Will start on ASA 81 mg.
[2019-11-11] MEDS: THIAMINE HCL 100 MG TABLET (FP) PO SCH (22:49)
[2019-11-11] MEDS: LORazepam 2 MG TABLET PO SCH (22:49)
[2019-11-11] MEDS: MELATONIN 5 MG TABLETS PO SCH (22:54)
[2019-11-12] MEDS: LORazepam 2 MG TABLET PO SCH ×4 (06:25→23:51)
[2019-11-12] MEDS ORDERED: METHADONE (DETOX) 20 MG, METHADONE (DETOX) 5 MG PO ONE (10:00)
[2019-11-12] MEDS ORDERED: METHADONE HCL 5 MG TABLET (FOR DETOX USE ONLY) ONE (10:10)
[2019-11-12] MEDS ORDERED: METHADONE HCL 10 MG TABLET (FOR DETOX USE ONLY) ONE (10:10)
[2019-11-12] MEDS: ASPIRIN COATED 81 MG TABLET.EC PO SCH (11:00)
[2019-11-12] MEDS: NICOTINE 14 MG/24 HOURS TOPICAL PATCH TD SCH (11:00)
[2019-11-12] MEDS: PRENATAL VITAMINS W/ FOLIC ACID TABLET (FP) PO SCH (11:01)
--- NOTE | 2019-11-12 11:35 | PN ---
[facility] CIWA - CIWA Score Nausea/Vomitin-No Nausea/No Vomiting Muscle Tremors: 3 Anxiety: 3 Agitation: 2 Paroxysmal Sweats: 2 Orientation: 0-Oriented Tacttile Disturbances: 0-None Auditory Disturbances: 1-Very Mild Visual Disturbances: 1-Very Mild Sensitivity Headache: 0-None Present CIWA-Ar Total Score: 12 S COWS - Scale Resting Pulse: 0= [place] 80 or Below Sweatin= Chills/Flushing Restless Observation: 1= Difficult to Sit Still Pupil Size: 0= Normal to Room Light Bone or Joint Aches: 2= Severe Diffuse Aches Runny Nose/ Eye Tearin= None GI Upset > 30mins: 0= None Tremor Observation of Outstretched Hands: 2= Slight Tremor Visible Yawning Observation: 0= None Anxiety or Irritability: 2=Irritable/Anxious Goose Flesh Skin: 0=Smooth Skin COWS Score: 8 S Progress Note (SOAP) Subjective: Complaints of anxiety,tremors,body aches, sweats,light and noise sensitivity. Objective: Vital Signs 11/12/19 11/12/19 06:09 09:26 Temperature 96.6 F L 97.2 F L Pulse Rate 62 75 Respiratory 16 20 Rate Blood Pressure 132/85 141/86 O2 Sat by Pulse 97 97 Oximetry (%) Labs pending. Assessment: 11/12/19 11:33 Alert and oriented x 3, in no acute respiratory distress. Full ROM, ambulating in the unit without assistance. Withdrawal symptoms. Plan: Continue detox protocol.
[2019-11-12 12:23] LABS: HEMATOCRIT 37.1 % (35.4-49); HEMOGLOBIN 12.1 GM/dL (11.7-16.9); MCH 27.7 pg (25.7-33.7); MCHC 32.7 g/dl (32.0-35.9); MEAN CELL VOLUME 84.8 fl (80-96); MEAN PLT VOLUME 7.7 fl (7.5-11.1); PLATELET COUNT 117 K/MM3 (134-434); RBC 4.38 M/mm3 (4.00-5.60); RDW 15.2 % (11.9-15.9); WHITE BLOOD COUNT 4.1 K/mm3 (4.0-10.0)
[2019-11-12 12:31] LABS: ALBUMIN 3.1 g/dl (3.4-5.0); BILIRUBIN,TOTAL 0.7 mg/dL (0.2-1); BLOOD UREA NITROGEN 15.2 mg/dL (7-18); CALCIUM 8.4 mg/dL (8.5-10.1); CREATININE 1.2 mg/dL (0.55-1.3); TOT PROT 6.7 g/dl (6.4-8.2)
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
[2019-11-12] MEDS: QUEtiapine FUMARATE 100 MG TABLET (FP) PO SCH (23:00)
[2019-11-12] MEDS: MELATONIN 5 MG TABLETS PO SCH (23:00)
[2019-11-12] MEDS: THIAMINE HCL 100 MG TABLET (FP) PO SCH (23:00)
[2019-11-13] MEDS: LORazepam 1 MG TABLET PO SCH ×4 (05:34→22:08)
[2019-11-13] MEDS ORDERED: METHADONE HCL 10 MG TABLET (FOR DETOX USE ONLY) PO ONE (10:00)
[2019-11-13] MEDS: ASPIRIN COATED 81 MG TABLET.EC PO SCH (10:36)
[2019-11-13] MEDS: NICOTINE 14 MG/24 HOURS TOPICAL PATCH TD SCH (10:36)
[2019-11-13] MEDS: PRENATAL VITAMINS W/ FOLIC ACID TABLET (FP) PO SCH (11:37)
[2019-11-13] MEDS: SERTRALINE HCL 50 MG TABLET (FP) PO SCH (11:37)
--- NOTE | 2019-11-13 12:35 | PN ---
[facility] CIWA - CIWA Score Nausea/Vomitin-No Nausea/No Vomiting Muscle Tremors: 2 Anxiety: 2 Agitation: 2 Paroxysmal Sweats: 2 Orientation: 0-Oriented Tacttile Disturbances: 0-None Auditory Disturbances: 0-None Visual Disturbances: 0-None Headache: 0-None Present CIWA-Ar Total Score: 8 S COWS - Scale Resting Pulse: 0= IN 80 or Below Sweatin= Chills/Flushing Restless Observation: 1= Difficult to Sit Still Pupil Size: 0= Normal to Room Light Bone or Joint Aches: 2= Severe Diffuse Aches Runny Nose/ Eye Tearin= None GI Upset > 30mins: 0= None Tremor Observation of Outstretched Hands: 2= Slight Tremor Visible Yawning Observation: 0= None Anxiety or Irritability: 1=Feels Anxious/Irritable Goose Flesh Skin: 0=Smooth Skin COWS Score: 7 S Progress Note (SOAP) Subjective: Complaints anxiety, chills, sweats, shakes, and body aches Objective: 11/13/19 12:34 Vital Signs 11/13/19 11/13/19 11/13/19 05:23 08:01 09:58 Temperature 97.7 F 97.5 F L Pulse Rate 48 L 79 65 Respiratory 16 20 Rate Blood Pressure 120/66 138/84 O2 Sat by Pulse 98 Oximetry (%) Laboratory Last Values WBC 4.1 K/mm3 (4.0-10.0) 11/12/19 07:15 RBC 4.38 M/mm3 (4.00-5.60) 11/12/19 07:15 Hgb 12.1 GM/dL (11.7-16.9) 11/12/19 07:15 Hct 37.1 % (35.4-49) 11/12/19 07:15 MCV 84.8 fl (80-96) 11/12/19 07:15 MCH 27.7 pg (25.7-33.7) 11/12/19 07:15 MCHC 32.7 g/dl (32.0-35.9) 11/12/19 07:15 RDW 15.2 % (11.9-15.9) 11/12/19 07:15 Plt Count 117 K/MM3 (134-434) L D 11/12/19 07:15 MPV 7.7 fl (7.5-11.1) 11/12/19 07:15 Sodium 140 mmol/L (136-145) 11/12/19 07:15 Potassium 4.0 mmol/L (3.5-5.1) 11/12/19 07:15 Chloride 108 mmol/L (98-107) H 11/12/19 07:15 Carbon Dioxide 27 mmol/L (21-32) 11/12/19 07:15 Anion Gap 5 MMOL/L (8-16) L 11/12/19 07:15 BUN 15.2 mg/dL (7-18) 11/12/19 07:15 Creatinine 1.2 mg/dL (0.55-1.3) 11/12/19 07:15 Est GFR (CKD-EPI)AfAm 78.43 11/12/19 07:15 Est GFR (CKD-EPI)NonAf 67.67 11/12/19 07:15 Random Glucose 140 mg/dL (74-106) H 11/12/19 07:15 Calcium 8.4 mg/dL (8.5-10.1) L 11/12/19 07:15 Total Bilirubin 0.7 mg/dL (0.2-1) 11/12/19 07:15 AST 53 U/L (15-37) H 11/12/19 07:15 ALT 47 U/L (13-61) 11/12/19 07:15 Alkaline Phosphatase 51 U/L (45-117) 11/12/19 07:15 Total Protein 6.7 g/dl (6.4-8.2) 11/12/19 07:15 Albumin 3.1 g/dl (3.4-5.0) L 11/12/19 07:15 Syphilis Serology Reactive (NONREACTIVE) A* 11/12/19 07:15 RPR Titer Reactive 1:1 (NONREACTIVE) H D 11/12/19 07:15 Labs noted with reactive Syphilis serology. Assessment: 11/13/19 12:35 Patient was seen and examined at bedside. Alert and oriented x 3, in no acute respiratory distress. Full ROM, ambulatory without assistance. Withdrawal symptoms. Reactive syphilis serology, denies any lesions. Was never treated, will give Penicillin G 2.4 million units x 1 dose. Patient agrees with plan 11/13/19 14:20 Plan: Continue detox protocol. Penicillin G 2.4 million units IM x 1 dose for reactive syphilis serology.
[2019-11-13] MEDS ORDERED: PENICILLIN G BENZATHINE 2,400,000 UNIT/4 ML PFS IM ONE (14:25)
[2019-11-13] MEDS: THIAMINE HCL 100 MG TABLET (FP) PO SCH (22:08)
[2019-11-13] MEDS: QUEtiapine FUMARATE 100 MG TABLET (FP) PO SCH (22:08)
[2019-11-13] MEDS: MELATONIN 5 MG TABLETS PO SCH (22:10)
[2019-11-14] MEDS ORDERED: LORazepam 0.5 MG TABLET PO PRN
[2019-11-14] MEDS: LORazepam 0.5 MG TABLET PO SCH ×2 (05:57→10:15)
[2019-11-14 07:17] VITALS: BP 101/68; PULSE 57; TEMP 97.1
[2019-11-14] MEDS ORDERED: METHADONE HCL 5 MG TABLET (FOR DETOX USE ONLY) ONE (09:23)
[2019-11-14] MEDS ORDERED: METHADONE HCL 10 MG TABLET (FOR DETOX USE ONLY) ONE (09:23)
[2019-11-14] MEDS ORDERED: METHADONE (DETOX) 10 MG, METHADONE (DETOX) 5 MG PO ONE (10:00)
--- NOTE | 2019-11-14 10:14 | DS ---
[facility] Detox Discharge Summary Admission Date: 11/11/19 Discharge Date: 11/14/19 (Pt left AMA) - History Present History: Alcohol Dependence, Opioid Dependence Additional Comments: Pt left AMA. Pt did not complete the detox protocol. Pt states, "i got family to take care of". An attempt to let pt stay and complete the detox protocol failed. Pt is encouraged to follow-up with an outpatient CD program and also to follow- up with his pmd which he verbalized understanding. Pt is AOX3 and in no acute respiratory, Full ROM, and ambulatory. Pertinent Past History: h/o alcohol and heroin use disorder. - Physical Exam Results Vital Signs: Vital Signs Temperature 97.1 F L 11/14/19 05:46 Pulse Rate 57 L 11/14/19 05:46 Respiratory Rate 18 11/14/19 05:46 Blood Pressure 101/68 11/14/19 05:46 O2 Sat by Pulse Oximetry (%) 97 11/14/19 05:46 Vital Signs 11/14/19 05:46 Temperature 97.1 F L Pulse Rate 57 L Respiratory 18 Rate Blood Pressure 101/68 O2 Sat by Pulse 97 Oximetry (%) Laboratory Last Values WBC 4.1 K/mm3 (4.0-10.0) 11/12/19 07:15 RBC 4.38 M/mm3 (4.00-5.60) 11/12/19 07:15 Hgb 12.1 GM/dL (11.7-16.9) 11/12/19 07:15 Hct 37.1 % (35.4-49) 11/12/19 07:15 MCV 84.8 fl (80-96) 11/12/19 07:15 MCH 27.7 pg (25.7-33.7) 11/12/19 07:15 MCHC 32.7 g/dl (32.0-35.9) 11/12/19 07:15 RDW 15.2 % (11.9-15.9) 11/12/19 07:15 Plt Count 117 K/MM3 (134-434) L D 11/12/19 07:15 MPV 7.7 fl (7.5-11.1) 11/12/19 07:15 Sodium 140 mmol/L (136-145) 11/12/19 07:15 Potassium 4.0 mmol/L (3.5-5.1) 11/12/19 07:15 Chloride 108 mmol/L (98-107) H 11/12/19 07:15 Carbon Dioxide 27 mmol/L (21-32) 11/12/19 07:15 Anion Gap 5 MMOL/L (8-16) L 11/12/19 07:15 BUN 15.2 mg/dL (7-18) 11/12/19 07:15 Creatinine 1.2 mg/dL (0.55-1.3) 11/12/19 07:15 Est GFR (CKD-EPI)AfAm 78.43 11/12/19 07:15 Est GFR (CKD-EPI)NonAf 67.67 11/12/19 07:15 Random Glucose 140 mg/dL (74-106) H 11/12/19 07:15 Calcium 8.4 mg/dL (8.5-10.1) L 11/12/19 07:15 Total Bilirubin 0.7 mg/dL (0.2-1) 11/12/19 07:15 AST 53 U/L (15-37) H 11/12/19 07:15 ALT 47 U/L (13-61) 11/12/19 07:15 Alkaline Phosphatase 51 U/L (45-117) 11/12/19 07:15 Total Protein 6.7 g/dl (6.4-8.2) 11/12/19 07:15 Albumin 3.1 g/dl (3.4-5.0) L 11/12/19 07:15 Syphilis Serology Reactive (NONREACTIVE) A* 11/12/19 07:15 RPR Titer Reactive 1:1 (NONREACTIVE) H D 11/12/19 07:15 COVID-19 (IVELISSE) Not detected (Not Detected) 11/11/19 22:30 Labs noted. Pertinent Admission Physical Exam Findings: withdrawal symptoms. - Treatment Hospital Course: Detox Protocol Followed - Medication Discharge Medications: Ambulatory Orders Quetiapine Fumarate [Seroquel -] 200 mg PO HS #30 tab 08/30/18 Gabapentin 300 mg PO TID 01/22/19 Sertraline HCl [Zoloft] 100 mg PO DAILY 01/22/19 Biktarvy 50-200-25 mg Tablet 1 tablet PO DAILY 11/11/19 - Diagnosis (1) Alcohol dependence with uncomplicated withdrawal Status: Acute (2) Opioid dependence with withdrawal Status: Acute (3) HIV (human immunodeficiency virus infection) Status: Chronic Qualifiers: HIV symptom status: unspecified Qualified Code(s): B20 - Human immunodeficiency virus [HIV] disease (4) Nicotine dependence Status: Chronic Qualifiers: Nicotine product type: cigarettes Substance use status: uncomplicated Qualified Code(s): F17.210 - Nicotine dependence, cigarettes, uncomplicated - AMA Did Patient Leave Against Medical Advice: Yes
[2019-11-14] MEDS: SERTRALINE HCL 50 MG TABLET (FP) PO SCH (10:15)
[2019-11-14] MEDS: NICOTINE 14 MG/24 HOURS TOPICAL PATCH TD SCH (10:15)
[2019-11-14] MEDS: PRENATAL VITAMINS W/ FOLIC ACID TABLET (FP) PO SCH (10:15)
[2019-11-14] MEDS: ASPIRIN COATED 81 MG TABLET.EC PO SCH (10:15)
[2019-11-14] MEDS ORDERED: PNEUMOC 13-VAL CONJ-DIP CRM/PF 0.5 ML DISP.SYRIN IM ONE (12:00)
--- NOTE | 2019-11-14 18:28 | EKG ---
Test Reason : Blood Pressure : / mmHG Vent. Rate : 048 BPM Atrial Rate : 048 BPM P-R Int : 164 ms QRS Dur : 086 ms QT Int : 458 ms P-R-T Axes : 076 -20 -35 degrees QTc Int : 409 ms SINUS BRADYCARDIA INFERIOR INFARCT , AGE UNDETERMINED ABNORMAL ECG WHEN COMPARED WITH ECG OF 27-AUG-2018 14:39, VENT. RATE HAS DECREASED BY 28 BPM INFERIOR INFARCT IS NOW PRESENT T WAVE INVERSION NOW EVIDENT IN INFERIOR LEADS T WAVE INVERSION NOW EVIDENT IN ANTERIOR LEADS Confirmed by WALTER BOLIVAR MD ([id number]) on 11/14/2019 6:27:53 PM Referred By: Confirmed By:WALTER BOLIVAR MD
[2019-11-15] MEDS ORDERED: LORazepam 0.5 MG TABLET PO ONE (05:00)
[2019-11-15] MEDS ORDERED: METHADONE HCL 10 MG TABLET (FOR DETOX USE ONLY) PO ONE (10:00)
[2019-11-16] MEDS ORDERED: METHADONE HCL 5 MG TABLET (FOR DETOX USE ONLY) PO ONE (06:00)
== END 2019-11-14 11:05 | disposition left against medical advice (07) | DRG 770 ==
LOC: YASAS 17:20 → Y6N 19:43
PROVIDERS: ADMIT Allergy & Immunology; ATTEND Allergy & Immunology
PROC: HZ2ZZZZ Detoxification Services for Substance Abuse Treatment (ICD-10-PCS; principal; 2019-11-11)
DX: F10.230 Alcohol dependence with withdrawal, uncomplicated (principal); F11.23 Opioid dependence with withdrawal; F12.20 Cannabis dependence, uncomplicated; F17.210 Nicotine dependence, cigarettes, uncomplicated; F31.9 Bipolar disorder, unspecified; F43.10 Post-traumatic stress disorder, unspecified; F41.9 Anxiety disorder, unspecified; B20 Human immunodeficiency virus [HIV] disease; G62.9 Polyneuropathy, unspecified; B18.2 Chronic viral hepatitis C; I25.10 Atherosclerotic heart disease of native coronary artery without angina pectoris; I25.2 Old myocardial infarction; Z95.5 Presence of coronary angioplasty implant and graft; Z79.82 Long term (current) use of aspirin; Z87.81 Personal history of (healed) traumatic fracture; Z56.0 Unemployment, unspecified
CPT/HCPCS: 36415; 80053; 85027; 86593; 86780; 93005; 93010; U0003